=== PATIENT | female | born 1950 | race Caucasian/White ===

== ENCOUNTER 2018-09-21 08:50 | Observation (INO) | payer MEDICARE, OTHER ==
[~2018-09-21] VITALS: Ht 157.5 cm; Wt 69.1 kg
[~2018-09-21 08:50] MED LIST: AMARYL2 MG PO; ASPIRIN EC81 MG PO; CRESTOR10 MG PO; LANTUS100 UNITS/ SUB-Q; LEVAQUIN500 MG PO; LISINOPRIL20 MG PO; MECLIZINE HCL25 MG PO; METFORMIN HCL500 M1 PO; METFORMIN HCL500 MG PO; SIMVASTATIN20 MG PO; VENTOLIN HFA18 GM; VITAMIN D5000 UNIT PO
[2018-09-21] MEDS ORDERED: OXYCODON-ACETA1 EAC2 PO (14:04)
[2018-09-21] MEDS ORDERED: TYLENOL325 MG PO (14:04)
[2018-09-21] MEDS ORDERED: IBUPROFEN600 MG PO (14:04)
--- NOTE | 2018-09-21 14:06 | NUR ---
09/21/18 1406 Chelsea Avalos SN 1344- PT ARRIVES TO PACU. PT ON 6L VIA MASK. 02 SAT IN HIGH 90'S, RESPS EVEN AND UNLABORED. PT DROWSY AND UNABLE TO RESPOND TO QUESTIONS AT THIS TIME. ON ARRIVAL PT SBP 86. ALEKSEY, DOWNSTAIRS MAID NOTIFIED OF THIS. ORDERED TO COMPLETE BOLUS OF FLUID AND START ANOTHER LITER. 1351- CBG TAKEN BY JD MORGAN AT THIS TIME. BLOOD SUGAR IS 144. 1358- 02 REMOVED AT THIS TIME. PT ON RA WITH 02 SATS IN HIGH 90'S. TOLERATING WELL. PT DENIES PAIN, NAUSEA, AND DIZZINESS AT THIS TIME.
--- NOTE | 2018-09-21 15:27 | NUR ---
1435: PATIENT BACK IN DAY SURGERY ROOM. PATIENT DROWSY. AWAKENS TO VOICE. UNABLE TO RATE PAIN, BUT C/O PAIN. GRIMACING INTERMITTENTLY. VS CHECKED. LEFT BREAST DRESSING WITH SCANT AMOUNT OF DRAINAGE. SCDs ON ON. IV SITE WNL. DAUGHTER AT BEDSIDE. 1455: DR. ROSARIO NOTIFIED OF PATIENT'S BP. DAUGHTER AND PATIENT REQUESTED SOMETHING IV FOR PAIN. NEW ORDER RECEIVED FROM DR. ROSARIO. PATIENT MEDICATED FOR PAIN WITH IV MORPHINE. BP RECHECKED. 1540: ASSISTED PATIENT TO EAT JELLO AND DRINK SOME WATER. THEN MEDICATED FOR PAIN WITH 1 TAB OF PERCOCET. VS CHECKED. FAMILY AT BEDSIDE. BREAST HAIRSPRING SETTER IN TO SEE PATIENT AND DAUGHTER. CALL LIGHT WITHIN REACH.
--- NOTE | 2018-09-21 15:56 | OR ---
[facility] [address] [place], [place] [address] Signed DATE OF OPERATION: 09/21/2018 SURGEON: Duc Rosario MD PREOPERATIVE DIAGNOSIS: Left upper outer quadrant breast carcinoma (infiltrating ductal, ER/MA positive breast cancer). POSTOPERATIVE DIAGNOSIS: Left upper outer quadrant breast carcinoma (infiltrating ductal, ER/MA positive breast cancer). PROCEDURES PERFORMED: 1. Left breast injection of methylene blue dye for sentinel lymph node identification. 2. Left deep axillary sentinel lymph node biopsy. 3. Left wire localized partial mastectomy. ANESTHESIA: General LMA; Flores Jacquelin, EMBEDDED SOFTWARE DEVELOPMENT ENGINEER; and local 10 mL of 0.25% Marcaine with epinephrine. INDICATION: This 68-year-old woman underwent screening mammography where she was found to have an abnormality in the left upper outer quadrant of the breast. Additional imaging studies and biopsy by Dr. Mathieu Marie confirmed the infiltrating ductal breast carcinoma, considered ER/MA positive, HER-2/liliam is pending. Her Ki67 was 18% with no sign of lymphovascular invasion. She has no clinically palpable lesion and the axilla is clinically negative. Chest x-ray is negative as well. She does have comorbidities including diabetes type 2 as well as ongoing smoking of half pack of cigarettes a day. After a thorough review of her options for breast cancer management, she opts for a breast conservation approach to include lumpectomy (partial mastectomy), axillary sentinel lymph node biopsy, possible axillary dissection depending on frozen pathology. She understands as does her daughter the risks of bleeding, infection, recurrent disease and a plan already in place for radiation therapy postoperatively. Alternative of mastectomy has been reviewed with the patient and her daughter as well. It is notable that she does have mother who had breast cancer, but no other family members. Understanding all these she wished to proceed. FINDINGS: Good localization by the wire of the lesion in question was noted. The lesion was in the upper outer aspect of the left breast. Initial excision included the wire Electronically Signed By: DUC ROSARIO MD 09/21/18 1556 PATIENT NAME: CARMELO WHIPPLE OPERATIVE REPORT DATE OF : 48 REPORT #: [id number] PHYSICIAN: DUC ROSARIO MD PCP: JASVIR PERALTA REPORT IS CONFIDENTIAL AND NOT TO BE RELEASED WITHOUT AUTHORIZATION [facility] [address] [place], [place] [address] Signed surrounding soft tissue and palpable abnormality at the tip of the wire. Palpation of additional tissue in the distal margin was suspicious. Therefore, wide additional excision was undertaken as well. Specimen radiograph confirmed the initial lesion on the edge of the excised specimen, concordant to our clinical findings. I believe the margin to be widely negative at this point. As regard to the sentinel lymph node was easily identified with both radionuclide and methylene blue dye. Frozen pathology showed no sign of metastatic disease in the lymph node. There were no other lymph nodes. Of note, and only one sentinel lymph node was excised. DESCRIPTION OF PROCEDURE: The patient received from radiology suite, taken the operating room, and given a general anesthetic by LMA technique. Preoperative antibiotic Ancef was given. Sequential compression device stockings used and heparin subcutaneously administered. The wire emanated from the upper outer aspect of the left breast superiorly oriented. Review of her films including sentinel lymph node films as well as specimen. Her as well as the mammogram films confirmed the lesion and its position in relation to the wire and so on. 1.5 mL of methylene blue dye was injected in the subepithelial space in the upper outer aspect of the left areola. After sterile preparation and draping, a C-Trak gamma probe was applied to the left axilla showing strong uptake in the superior medial aspect. A small transverse incision was made there and dissection was carried through the subcutaneous tissue with electrocautery. Using blunt dissection in an avascular field, blue lymphatics were immediately identified and they were followed to the subpectoral area where a large blue node was noted. It was approximately 1-1/2 to 2 cm in size. It was clearly the index sentinel lymph node. This was dissected free and lymph node dissected free and passed for pathology. Additional interrogation of the axilla showed no strong uptake to radionuclide monitoring and no obvious blue lymph node elsewhere. The wound was then packed with gauze awaiting frozen pathology results. Attention was turned towards the breast area. The lesion was nonpalpable of course and hence the wire localization to allow for excision. A curvilinear incision was made over the area anticipated to be the site of the lesion in question. Dissection was carried through the dermis with electrocautery. A flap was elevated superiorly to allow for delivery of localizing wire. The parenchyma and wire were secured with an Allis clamp and wide resection undertaken. The deep lateral aspect of the tip of the wire could be palpated and excision undertaken. The explanted breast tissue with wire allowed for palpation confirming a high probability of lesion in question. This was sent for specimen radiograph. Additional palpation in the area of excision, however, did demonstrate additional firm tissue and very likely this would have been a positive margin. On that basis, wide excision was additionally undertaken in the deep and Electronically Signed By: DUC ROSARIO MD 09/21/18 1556 PATIENT NAME: CARMELO WHIPPLE OPERATIVE REPORT DATE OF : 48 REPORT #: [id number] PHYSICIAN: DUC ROSARIO MD PCP: JASVIR PERALTA REPORT IS CONFIDENTIAL AND NOT TO BE RELEASED WITHOUT AUTHORIZATION [facility] [address] [facility] [place] [address] Signed lateral aspects widely excised breast tissue to include the abnormally palpable tissue. Additional examination showed no suspicious lesion whatsoever. Irrigation was undertaken with sterile water. The parenchyma was reapproximated with interrupted 2-0 Vicryl. Specimen radiograph confirmed that the lesion was consider (on the edge of the excision) as was concordant to the clinical findings. I did not send the additional excised tissue for specimen radiograph. By this point, the frozen pathology of the sentinel lymph node showed no evidence of metastatic disease. Both wounds were copiously irrigated with sterile water for its tumor lytic effect and deep soft tissue reapproximated with interrupted 2-0 Vicryl and running subcuticular 3-0 Vicryl for the skin. Steri-Strips were applied as was a Mepilex silver sponge dressing and an OpSite. The patient was ultimately extubated and transferred to recovery in good condition having suffered no complications. Sponge, needle, and counts reported as correct x3. MD DAVID Escoto/MODL /[id number] cc: Mathieu Marie MD [facility] Copies: MATHIEU MARIE MD ~ Electronically Signed By: DUC ROSARIO MD 09/21/18 1556 PATIENT NAME: CARMELO WHIPPLE OPERATIVE REPORT DATE OF : 48 REPORT #: [id number] PHYSICIAN: DUC ROSARIO MD PCP: JASVIR PERALTA REPORT IS CONFIDENTIAL AND NOT TO BE RELEASED WITHOUT AUTHORIZATION
--- NOTE | 2018-09-21 16:32 | EKG ---
[facility] [address] [facility] [place] [address] Signed Normal sinus rhythm Left ventricular hypertrophy with repolarization abnormality Prolonged QT Abnormal ECG When compared with ECG of 18-SEP-2018 12:00, T wave inversion no longer evident in Inferior leads Confirmed by RODDY CISNEROS DO ([id number]) on 09/21/2018 4:32:09 PM Electronically Signed By: RODDY CISNEROS DO 09/21/18 1632 PATIENT NAME: CARMELO WHIPPLE Electrocardiogram DATE OF : 48 PHYSICIAN: RODDY CISNEROS DO REPORT #: [id number] REPORT IS CONFIDENTIAL AND NOT TO BE RELEASED WITHOUT AUTHORIZATION
--- NOTE | 2018-09-21 16:42 | NUR ---
PT RESTING IN BED WITH EYES CLOSED. PT RESPONDS TO VERBAL COMMAND AND ANSWERS QUESTIONS APPROPRIATELY. PT DENIES NAUSEA AND RATES PAIN 4/10 COMFORTABLE. PT FAMILY AT BEDSIDE, CALL LIGHT WITHIN REACH.
--- NOTE | 2018-09-21 17:06 | NUR ---
ASSISTED TO BR VOIDS 150 MLS. FEELS LIGHT HEADED AND THEN BECAME NAUSEATED VOMITED APPRO 100MLS RED LIQUID. HAD RED JELLO AND WATER 200MLS. RETURNED TO BED.
--- NOTE | 2018-09-21 17:31 | NUR ---
CONTS TO FEEL LIGHT HEADED. DENIES NAUSEA. DR ROSARIO CALLED WITH UPDATE ON LIGHT HEADEDINESS NAUSEA. TO OBS PT LONGER AND CALL HIM WITH UPDATE THIS EVENING.
--- NOTE | 2018-09-21 17:53 | NUR ---
1745 TRANSFERRED TO 117 REPORT GIVEN ULICES MILES.
--- NOTE | 2018-09-21 18:01 | NUR ---
1745: PT TO ROOM 117, REPORT RECEIVED FROM ADAM MILES. PT STATES HER PAIN IS WELL CONTROLLED AT A 2/10. SHE STATES SHE CONTINUES TO FEEL A LITTLE BIT DIZZY. PT INSTRUCTED TO NOT GET UP WITHOUT HELP AND SHE WAS ORIENTED TO THE ROOM AND THE USE OF THE CALL MANCIA. LEFT BREAST SURGICAL DRESSING REMAINS INTACT WITH A SCANT AMOUNT OF NOTED SHADOWING. SCD'S ON AND RUNNING AT THIS TIME. 20 GAUGE RIGHT AC IV CDI WITH LR RUNNING AT 85 ML/ HOUR.
--- NOTE | 2018-09-21 18:12 | NUR ---
REPORT RECEIVED FROM JD ELENA. THIS RN ASSUMING CARE OF PT. PT REPORTS 2/10 PAIN AND DENIES NAUSEA AT THIS TIME. DRESSING SHOWS ERASER SIZED RED SPOT NEAR AXILLA, OTHERWISE, C/D/I. WARM BLANKET PROVIDED. PT WATCHING TV. NO ADDITIONAL REQUESTS OR COMPLAITNS AT THIS TIME.
--- NOTE | 2018-09-21 18:52 | NUR ---
THIS RN TO BEDSIDE TO CHECK ON PT. PT DENIES PAIN AND NAUSEA AT THIS TIME. PT WATCHING TV WITH DAUGHTER. PT TOLREATING SIPS OF WATER. NO ADDTIONAL REQUESTS OR COMPLAINTS AT THIS TIME. CALL LIGHT WITHIN REACH.
--- NOTE | 2018-09-21 19:20 | NUR ---
SHIFT REPORT RECEIVED FROM GAVINOILGREGOR RANKIN AT BEDSIDE.PT RESTING IN BED, RR WNL. MEPILEX IN PLACE, SCANT DRAINAGE NOTED AT AXILLARY, WILL MONITOR. PT DENIES NAUSEA, SUGAR FREE JELLO GIVEN. PT REPORTS MINIMAL PAIN WITH MOVEMENT, DENIES NEED FOR PAIN MEDICATION. FAMILY AT BEDSIDE. CALL LIGHT IN REACH.
--- NOTE | 2018-09-21 20:30 | NUR ---
PT RESTING IN BED, EYES CLOSED. PT EASILY AWAKENS, DENIES PAIN. ASSESSMENT COMPLETE. NO NAUSEA AT THIS TIME. BOWEL TONES ACTIVE. MEPLIEX DRESSING INTACT, VERY SMALL SCANT DRAINAGE NOTED TO AXILLARY. PT DENIES ADDITIONAL NEEDS, CALL LIGHT IN REACH.
--- NOTE | 2018-09-21 21:04 | NUR ---
ASSISTED PT TO THE RESTROOM 2PA WITH JD AVALOS BECAUSE PT REPORTED FEELING "A LITTLE DIZZY". PT IS BACK IN BED AT THIS TIME. BAILEY IS IN ROOM WITH PT.
--- NOTE | 2018-09-21 21:15 | NUR ---
DR ROSARIO PROVIDED WITH PT UPDATE. PT A/OX4, RATES PAIN 0-2. DENIES NAUSEA, TOLERATING SUGAR FREE JELLO. BOWEL TONES ACTIVE. RECENT OUTPUT OF 150MLS. PT 1-2PA, REPORTED MILD DIZZINESS/WEAKNESS. VS BEFORE AND AFTER AMBULATION STABLE. DR ROSARIO AWARE OF ALL FINDINGS, PT WILL BE INPATIENT FOR EVENING AND WILL BE EVALUATED INN THE MORNING BY DR ROSARIO. AWAITING NEW ORDERS FOR PT.
--- NOTE | 2018-09-21 23:00 | NUR ---
CLARIFIED NEW ORDERS WITH DR ROSARIO AT NURSE'S STATION. DR ROSARIO NOTIFIED THAT PT TAKES SCHEDULED LANTUS IN THE EVENING AND IN THE EMAR LANTUS IS SCHEDULED FOR THE MORNING. PER DR ROSARIO, "YOU CAN GIVE HER THE LANTUS TONIGHT IF THAT'S WHEN SHE TAKES IT AT HOME". THIS RN VERIFIED WITH PT AND PT'S DAUGHTER THAT PT TAKES LANTUS AT NIGHT AND WAS LAST GIVEN ON 09/20/18 AT ROUGHLY [id number]. VERBAL ORDER VERIFIED BY DR ROSARIO TO CHANGE LANTUS TIME FOR EVENING STARTING NOW AND TO "HOLD 2AM REGULAR INSULIN AND LET THE LANTUS TAKE ITS COURSE". NO FURTHER ORDERS.
--- NOTE | 2018-09-22 01:06 | NUR ---
PT RESTING IN BED, RR WNL. IV FLUIDS INFUSING PER MD ORDERS, SITE WNL. EYES CLOSED, NO DISTRESS NOTED. CALL LIGHT IN REACH, PT'S DAUGHTER IN ROOM RESTING ON COUCH.
--- NOTE | 2018-09-22 02:00 | NUR ---
PER DR ROSARIO (SEE PREVIOUS NOTE) OKAY TO SKIP 0200 INSULIN SS. LAST BS BEFORE LANTUS ADMINISTRATION WAS 243. BUSINESS UNIT DIRECTOR AWARE OF CONVERSATION BETWEEN THIS RN AND DR ROSARIO AND AGREES WITH PLAN TO HOLD 0200 INSULIN SS ORDERS. WILL MONITOR FOR SIGNS OF HYPER/HYPOGLYCEMIA.
--- NOTE | 2018-09-22 02:11 | NUR ---
HELPED PT TO THE BATHROOM AND BACK TO BED. VITALS DONE AND CHARTED. BEDSIDE TABLE AND CALL LIGHT IN REACH.
--- NOTE | 2018-09-22 02:15 | NUR ---
ASSESSMENT COMPLETE. NO NEW CONCERNS. VSS. PT A/O, REPOSRTS MINIMAL INTERMITTENT PAIN WITH MOVEMENT, DENIES NEED FOR PHARMACOLOGICAL INTERVENTION. PT DENIES NAUSEA. IV FLUIDS INFUSING PER MD ORDERS, SITE WNL. PT RECENTLY UP 1PA FROM RESTROOM TO VOID. PT NOW RESTING IN BED, SCD'S IN PLACE. MEPILEX IN PLACE AND INTACT, NO NEW DRAINAGE NOTED FROM PREVIOUS ASSESSMENT. NO ADDITIONAL NEEDS, CALL LIGHT IN REACH.
--- NOTE | 2018-09-22 06:49 | NUR ---
PT HAD UNEVENTFUL NIGHT, SLEPT FOR MOST OF THE SHIFT. PT BECAME INPATIENT AFTER GIVEN DR ROSARIO UPDATE. NO NAUSEA THIS SHIFT, PT ON ADA DIET. SCHEDULED BS CHECKS WITH INSULIN SS AND SCHEDULED LANTUS. PT SBA WITH AMBULATION. IV FLUIDS INFUSING, SITE WNL. PT USES CALL LIGHT APPROPERIATELY.
--- NOTE | 2018-09-22 07:44 | NUR ---
0725: Pt resting in her bed with no complaints of nausea, dizziness, or pain. Pt alert and oriented and is ordering breakfast at this time. Call light is within reach.
--- NOTE | 2018-09-22 08:16 | NUR ---
PT UP TO HER CHAIR AND IS EATING AND SHE DENIES ANY PAIN OR OTHER PROBLEMS AT THIS TIME.
--- NOTE | 2018-09-22 10:11 | NUR ---
Pt sitting up in her chair with no complaints and is exercising her legs at this time.
--- NOTE | 2018-09-22 11:19 | NUR ---
PT GETTING READY FOR A SHOWER AT THIS TIME. THE CROWN ATTACHER IS IN THE ROOM ASSISTING THE PT AT THIS TIME. PT DENIES ANY PAIN OR OTHER PROBLEMS.
--- NOTE | 2018-09-22 13:01 | NUR ---
PATIENT IS SITTING UP IN CHAIR.
--- NOTE | 2018-09-22 13:16 | NUR ---
DID PATIENT'S BLOOD SUGAR CHECK FOR BREAKFAST AND LUNCH. GETTING HER SOME ICE WATER. SHE IS SITTING UP IN HER CHAIR DOING ARM AND LEG EXERCISES. WHILE WATCHING TV.
--- NOTE | 2018-09-22 14:39 | NUR ---
PATIENT SITTING UP IN CHAIR. RN IN ROOM. FINAL VITAL SIGNS WERE OBTAINED PRIOR TO DISCHARGE FROM THE UNIT
--- NOTE | 2018-09-22 14:40 | NUR ---
DC INSTUCTIONS GIVEN WITH GOOD UNDERSTANDING STATED. PT GETTING DRESSED FOR DC AT THIS TIME. IV DC'D, TIP INTACT.
== END 2018-09-22 15:00 | disposition home or self-care (01) ==
LOC: OPS 08:50 → MS 08:50 → DS 08:50 → EDSTATUS 10:00 → US 10:00 → OPS 10:00 → MS 17:45 → OPS 21:48 → MS 21:49
PROVIDERS: ADMIT Surgery
PROC: 0HBU0ZZ Excision of Left Breast, Open Approach (ICD-10-PCS; principal; 2018-09-21 11:30)
PROC: 07B60ZX Excision of Left Axillary Lymphatic, Open Approach, Diagnostic (ICD-10-PCS; 2018-09-21 11:30)
DX: C50.412 Malignant neoplasm of upper-outer quadrant of left female breast (principal); Z17.0 Estrogen receptor positive status [ER+]; E11.9 Type 2 diabetes mellitus without complications; F17.210 Nicotine dependence, cigarettes, uncomplicated; I95.9 Hypotension, unspecified; R42 Dizziness and giddiness; Z80.3 Family history of malignant neoplasm of breast; Z79.4 Long term (current) use of insulin; Z78.0 Asymptomatic menopausal state
CPT/HCPCS: 00404; 76098; 76942; 77065; 78195; 88305; 88307; 88341; 88342; 88360; 93005; 93010; A9541; G0378; J0131; J0690; J1100; J1644; J1885; J2250; J2270; J2405; J2704; J7120; Q9968

== ENCOUNTER 2019-10-31 15:39 | Emergency (ER) | payer MEDICARE, OTHER ==
[~2019-10-31] VITALS: Ht 157.5 cm; Wt 70.3 kg
[~2019-10-31 15:39] MED LIST changes: +ANASTROZOLE1 MG PO; +CALCIUM 600 +1 EAC9 PO; +FEROSUL325 MG PO; +IBUPROFEN600 MG PO; +OXYCODON-ACETA1 EAC2 PO; +TYLENOL325 MG PO; +VITAMIN C500 M5 PO
--- NOTE | 2019-11-01 13:12 | EKG ---
[facility] [address] [facility] [place] [address] \T\ T wave abnormality, consider lateral ischemia Abnormal ECG When compared with ECG of 21-SEP-2018 09:51, ST more depressed in Anterior leads T wave inversion no longer evident in Anterior leads Confirmed by YONY SAMPSON MD ([id number]) on 11/01/2019 1:12:06 PM Electronically Signed By: YONY SAMPSON MD 11/01/19 1312 PATIENT NAME: CARMELO WHIPPLE Electrocardiogram DATE OF : 48 PHYSICIAN: YONY SAMPSON MD REPORT #: [id number] REPORT IS CONFIDENTIAL AND NOT TO BE RELEASED WITHOUT AUTHORIZATION
== END 2019-10-31 17:17 | disposition short-term general hospital (02) ==
LOC: ED 15:39
DX: K92.2 Gastrointestinal hemorrhage, unspecified (principal); R57.8 Other shock; E11.9 Type 2 diabetes mellitus without complications; F17.200 Nicotine dependence, unspecified, uncomplicated; Z79.4 Long term (current) use of insulin; Z79.82 Long term (current) use of aspirin; Z79.899 Other long term (current) drug therapy
CPT/HCPCS: 71260; 74177; 80053; 81001; 83690; 83880; 84484; 85025; 85730; 86850; 86900; 86901; 86920; 86927; 93005; 93010; 96361; 99291; C9113; J2354; J2405; J7030; J7050; P9016; Q9967

== ENCOUNTER 2021-09-23 15:22 | Inpatient (IN) | payer MEDICARE, OTHER ==
[~2021-09-23] VITALS: Ht 157.5 cm; Wt 79.7 kg
--- NOTE | 2021-09-23 01:26 | NUR ---
PT ARRIVED TO THE CCU AT 2320 DROWSY BUT AWOKE EASILY TO VOICE. PT LR BOLUS INFUSING ORDERED. PT MOVED OVER TO THE CCU BED WITH ASSISTANCE FROM JD CHING AND RESEARCH TECHNICIAN ANJELICA. VITALS THEN TAKEN, ADMISSION COMPLETED. JD CHING ADMINISTERED SCHEDULED MEDICATIONS (SEE MAR). PT THEN ASSESSED PT NOTED TO BE SLOW TO RESPOND, PT HARD OF HEARING AND DOES NOT HAVE HER HEARING AIDS. PT FORGETFUL AND DROWSY BUT IS ORIENTED X 4. HEART RYTHM TACHYCARDIC BUT REGULAR, LUNGS CLEAR IN UPPER LOBES, DIMINISHED IN THE BASES BILATERALLY WITH FINE CRACKLES IN THE LEFT LOWER LOBE. BOWEL TONES HYPOACTIVE, TENDER UPON PALPATION, PT GUARDING ABDOMEN WHEN PALPATING. RADIAL AND PEDAL PULSES STRONG, PT DENIES HAVING ANY NUMBNESS OR TINGLING WHEN ASKED. AFTER ASSESSMENT PT STATED SHE NEEDED TO VOID. PT ASSISSTED UP AND WAS ABLE TO PIVOT TO THE BEDSIDE COMMODE, VOIDED 600ML. SAMPLE COLLECTED AND SENT TO THE LAB. WHILE ON THE COMMODE PT BECAME NAUSEAUS, PRN ZOFRAN ADMINISTERED BY JD CHING. PT ABLE TO GET BACK INTO BED WITH ASSISTANCE. PT NOW LAYING IN BED SLEEPING AND REPORTS NO FURTHER NEEDS WHEN ASKED. CALL LIGHT IN REACH, BED IN LOWEST POSITION, IVF INFUSING ORDERED, WILL CONTINUE PLAN OF CARE.
[~2021-09-23 15:22] MED LIST changes: -CALCIUM 600 +1 EAC9 PO; +CALCIUM 600 MG1 EAC7 PO
--- NOTE | 2021-09-23 18:25 | EKG ---
[facility] [address] [facility] [place], [place] [address] Signed Sinus tachycardia Left ventricular hypertrophy with repolarization abnormality ( Sokolow-Lozano ) Abnormal ECG When compared with ECG of 23-SEP-2021 17:08, (Unconfirmed) No significant change was found Confirmed by YONY SAMPSON MD ([id number]) on 09/23/2021 6:25:29 PM Electronically Signed By: YONY SAMPSON MD 09/23/21 1825 PATIENT NAME: CARMELO WHIPPLE Electrocardiogram DATE OF : 48 PHYSICIAN: YONY SAMPSON MD REPORT #: [id number] REPORT IS CONFIDENTIAL AND NOT TO BE RELEASED WITHOUT AUTHORIZATION
--- NOTE | 2021-09-23 18:25 | EKG ---
[facility] [address] [facility] [place] [address] Signed Sinus tachycardia Left ventricular hypertrophy with repolarization abnormality ( Sokolow-Lozano ) Abnormal ECG When compared with ECG of 31-OCT-2019 16:29, T wave inversion now evident in Inferior leads Confirmed by YONY SAMPSON MD ([id number]) on 09/23/2021 6:25:25 PM Electronically Signed By: YONY SAMPSON MD 09/23/21 1825 PATIENT NAME: CARMELO WHIPPLE Electrocardiogram DATE OF : 48 PHYSICIAN: YONY SAMPSON MD REPORT #: [id number] REPORT IS CONFIDENTIAL AND NOT TO BE RELEASED WITHOUT AUTHORIZATION
--- NOTE | 2021-09-24 00:05 | NUR ---
assisted patient in taking her scheduled medications by mouth she did well, patient appears to be very thirsty, drank almost a whole cup of water. took her emulose 15 ml well. wants to go back to sleep.
--- NOTE | 2021-09-24 02:55 | NUR ---
PT LAYING IN BED SLEEPING AT THIS TIME IN NO APPARENT DISTRESS. IVF INFUSING AT ORDERED RATE. RESPIRATIONS EVEN AND UNLABORED, PT IN NO APPARENT DISTRESS AND WAS LEFT UNDISTURBED. CALL LIGHT IN REACH, BED IN LOWEST POSITION, WILL CONTINUE PLAN OF CARE.
--- NOTE | 2021-09-24 04:50 | NUR ---
PT LAYING IN BED SLEEPING AT THIS TIME. IVF INFUSING ORDERED. VITALS TAKEN, PT AWOKE EASILY AT THIS TIME AND WAS ORIENTED. PT ASSESSED AT THIS TIME (SEE CHART). PT ABDOMEN PAINFUL AND RATED A 9/10. ABOMINAL TONES HYPOACTIVE/RARE THROUGHOUT, TENDER TO TOUCH, AND GUARDED WHEN PALPATED. PT DENIES SHORTNESS OF BREATH WHEN ASKED. PRN OXYCODONE ADMINSITERED FOR PAIN (SEE MAR). PT PROVIDED WITH ICE WATER AT THIS TIME. PT REPORTS NO FURTHER NEEDS WHEN ASKED AND RETURNED BACK TO SLEEP. CALL LIGHT IN REACH, BED IN LOWEST POSITION, WILL CONTINUE PLAN OF CARE.
--- NOTE | 2021-09-24 07:45 | NUR ---
PATIENT SHIFT REPORT RECIEVED FROM CHIP APPLYING MACHINE TENDER RN. PATIENT RESTING IN BED AT THIS TIME. PER REPORT PATIENT IS PAINFUL ALL OVER. PATIENT HAS ALSO BEEN TACHYCARDIC IN THE LOW 100'S. PATIENT IS GETTING UP AND USING BEDSIDE CAMMODE. NO OTHER NEEDS AT THIS TIME. WILL CONTINUE TO CLOSELY MONITOR.
--- NOTE | 2021-09-24 09:00 | NUR ---
PATIENTS ASSESMENT COMPLETED. PATIENTS BREATH SOUNDS CLEAR, RR RATE EVEN AND UNLABORED. BOWEL TONES ACTIVE, PATIENT IS VERY TENDER TO PALPATION, MILD ABD DISTENTION, NO N/V. PATIENT WAS ABLE TO EAT APPROX 50% OF HER CLEAR LIQUID TRAY. PULSESS GOOD AND STRONG. PATIENT IS GERNALLY WEAK AND ACHY ALL OVER. PT IS ALERT AND ORIENTED, BUT A LITTLE HARD OF HEARING. MEDICATIONS GIVEN AND PATIENT TOOK WITH NO ISSUES. AM CARES PROVIDED. CALL LIGHT IN REACH. WILL CONTINUE TO CLOSELY MONITOR.
--- NOTE | 2021-09-24 10:00 | NUR ---
Spoke with pt, her sister, and friends. Pt consent to questions with people in room. Pt lives with her daughter, Brenda, she is at work today. Pt does not use any DME and has 0 issues acessing her home. Daughter does all the shopping, cooking, and cleaning. Pt can drive. Pt plans on dc to home when cleared medically.
--- NOTE | 2021-09-24 10:36 | NUR ---
STUDENT NURSE BARRINGTON IN TO GIVE PATIENT A BEDBATH WITH JD MIRAMONTES. SKIN IS INTACT. PATIENT UP TO CAMMODE WITH STAND-BY ASSIST. PATIENT TOLERATED WELL. WILL CONTINUE TO CLOSELY MONITOR.
--- NOTE | 2021-09-24 11:49 | NUR ---
MD IN TO SEE PATIENT. PATIENT IS MORE DISTENDED THIS AM PER MD. PATIENT REMAINS VERY TENDER TO PALPATION. WILL REPEAT CT SCAN WITH CONTRAST. NO OTHER NEEDS AT THIS TIME. WILL CONTINUE TO CLOSELY MONITOR.
[2021-09-24] MEDS ORDERED: PREDNISONE10 MG PO (12:18)
[2021-09-24] MEDS ORDERED: INVOKANA100 MG PO (12:19)
[2021-09-24] MEDS ORDERED: AZATHIOPRINE50 MG PO (12:20)
[2021-09-24] MEDS ORDERED: KLOR-CON M2020 MEQ PO (12:22)
[2021-09-24] MEDS ORDERED: PROTONIX40 MG PO (12:23)
[2021-09-24] MEDS ORDERED: OCEAN104 ML NAS (13:16)
--- NOTE | 2021-09-24 13:18 | NUR ---
MED REC COMPLETE
--- NOTE | 2021-09-24 14:00 | NUR ---
PATIENT RESTING IN BED WITH HER FAMILY AT THE BEDSIDE. PATIENT COMPLAINING OF PAIN. PER PATIENT THE PAIN MEDICATION GIVEN PRIOR ISNT HELPING HER PAIN. UPDATED FLOYD RN AND FLOYD WILL BE IN TO GIVE PRN MORPHINE. PATIENT AGREEABLE TO PLAN OF CARE. WILL CONTINUE TO CLOSELY MONITOR.
--- NOTE | 2021-09-24 14:26 | NUR ---
MEDICATIONS ADMINISTERED INCLUDING 2 MG IV MORPHINE FOR PAIN (SEE EMAR). FAMIILY AT BEDSIDE. ANSWERED QUESTIONS ABOUT PLAN OF CARE. CALL LIGHT WITHIN REACH. WILL CONTINUE TO MONITOR.
--- NOTE | 2021-09-24 15:30 | NUR ---
THIS RN AND PATIENT DOWN FOR CT SCAN.
--- NOTE | 2021-09-24 16:00 | NUR ---
PATIENT TOLERATED CT SCAN WELL. PATIENTS DAUGHTER AT THE BEDSIDE. REVIEWED PLAN OF CARE WITH PATIENT AND HER DAUGHTER. PATIENTS ASSESSMENT ALSO COMPLETED AT THIS ITME. PATIENTS ABD CONTINUES TO BE DISTENDED AND TENDER. PATIENTS BOWEL TONES ARE HYPOACTIVE. WILL CONTINUE TO CLOSELY MONITOR PATIENT.
--- NOTE | 2021-09-24 18:31 | NUR ---
SAMPSON IN TO DISCUSS CT RESULTS WITH PATIENT AND HER DAUGHTER. PLAN OF CARE REVIEWED WITH BOTH OF THEM. ALL QUESTIONS ANSWERED. PER MD WILL START PATIENT ON A HEPARIN GTT. PATIENT THEN UP TO BEDSIDE CAMMODE WITH STAND-BY ASSIST AND TOELRATED WELL. PATIENT RATING ABD PAIN 9/10. PRN OXYCODONE ADMINISTERED. NO OTHER NEEDS AT THIS TIME. PATIENTS SIST AT THE BEDSIDE AND HER DAUGHTER STEPPED OUT TO GRAB SOME BELONGINGS TO STAY WITH THE PATIENT TONIGHT. CALL LIGHT IN REACH. WILL CONTINUE TO CLOSELY MONITOR.
--- NOTE | 2021-09-24 19:00 | NUR ---
MD ROSARIO IN THE UNIT. PER MD GIVE A 5000UNIT HEPARIN BOLUS AND START HEPARIN GTT. UPDATED MD SAMPSON. IS AGREEABLE WITH PLAN OF CARE. AWAITED PHARMACY TO VERIFY MEDS. STARTED GTT PER ORDERS WITH HIPOLIOT MILES. WILL CONTINUE TO CLOSELY MONITOR.
--- NOTE | 2021-09-24 19:40 | NUR ---
PT LAYING IN ROOM AT THIS TIME AWAKE AND ALERT, DAUGHTER AT THE BEDSIDE, IVF INFUSING ORDERED. HEAD OF DRAMA FINISHED DRAWING PT'S LABS AT THIS TIME, BLOOD BAND VERIFIED WITH HEAD OF DRAMA. HEPARIN BOLUS OF 5000 UNITS AND HEPARIN DRIP CALCULATED AT A RATE OF 1100 UNITS/HR DOUBLE VERIFIED WITH JD RUIZ. MEDICATIONS THEN ADMINISTERED (SEE MAR). HEPARIN DRIP NOW INFUSING AT 1100 UNITS/HR. PT REPORTS NO NEEDS AT THIS TIME WHEN ASKED AND IS RESTING IN BED WITH HER DAUGHTER AT THE BEDSIDE. CALL LIGHT IN REACH, BED IN LOWEST POSITION, WILL CONTINUE PLAN OF CARE.
--- NOTE | 2021-09-24 21:20 | NUR ---
PT LAYING IN BED AWAKE AT THIS TIME, PT ORIENTED X4, IVF INFUSING, IV HEPARIN INFUSING AT PREVIOUS RATE (SEE MAR). PT VITALS TAKEN AT THIS TIME (SEE CHART). PT ASSESSMENT THEN COMPLETED. HEART RATE REGULAR, LUNGS CLEAR IN UPPER LOBES AND CLEAR/DIMINISHED IN THE BASES. ABDOMEN DISTENDED, PAINFUL WHEN PALPATED, AND GUARDED UPON PALPATION. PT REPORTS 9/10 ABDOMINAL PAIN WHEN ASKED. CMS INTACT, RADIAL AND PEDAL PULSES STRONG, PT DENIES N&T TO EXTREMITIES. SCHEDULED MEDICATIONS ADMINISTERED AT THIS TIME ALONG WITH PRN MORPHINE 2MG FOR ABDOMINAL PAIN (SEE MAR). SLIDING SCALE INSULIN HELD CBG WAS 127. PT NOW RESTING IN BED AND REPORTS NO FURTHER NEEDS WHEN ASKED. CALL LIGHT IN REACH, BED IN LOWEST POSITION, PT'S DAUGHTER AT THE BEDSIDE, WILL CONTINUE PLAN OF CARE.
--- NOTE | 2021-09-24 23:05 | NUR ---
PT LAYING IN BED SLEEPING AT THIS TIME HEPARIN AND IVF INFUSING AT PREVIOUS RATES. SCHEDULED IV ABX STARTED AND INFUSING AT ORDERED RATE (SEE MAR). PT AWOKE DURING THIS TIME. PT ASKED IF SHE WAS HAVING PAIN, PT STATED YES AND THAT SHE WAS HAVING ABDOMINAL PAIN 8/10. 2MG PRN MORPHINE THEN ADMINISTERED (SEE MAR). PT REPORTED NO FURTHER NEEDS AT THIS TIME AND RETURNED TO SLEEP. PT RESTING IN BED, PT'S DAUGHTER IN ROOM SLEEPING IN THE RECLINER, CALL LIGHT IN REACH, BED IN LOWEST POSITION, WILL CONTINUE PLAN OF CARE.
--- NOTE | 2021-09-25 01:30 | NUR ---
PT LAYING IN BED SLEEPING AT THIS TIME. IVF AND IV HEPARIN INFUSING AT PREVIOUS RATES. VITALS TAKEN AT THIS TIME, PT AWOKE DURING THIS TIME. PT THEN ASSESSED. PT SLIGHTLY DROWSY BUT ORIENTED X3 AND FOLLOWS DIRECTIONS. PT IV SITES C/D/I AND FLUSHING WELL. LUNGS CLEAR IN UPPER LOBES AND DIMINISHED/CLEAR IN THE BASES BILATERALLY. BOWEL TONES ACTIVE, PAINFUL WHEN PALPATED, MILDLY DISTENDED, AND GUARDED WHEN PALPATED. PULSES STRONG, PT DENIES NUMBNESS OR TINGLING TO EXTREMITIES. PT ASKED IF SHE NEEDED TO VOID AT THIS TIME, PT STATED YES. PT ASSISTED UP AND WAS ABLE TO PIVOT TO THE BEDSIDE COMMODE WITH SOME SUPPORT. PT VOIDED 350ML OF CONCENTRATED URINE AND WAS ASSISTED BACK INTO THE BED. PT REPORTS NO FURTHER NEEDS AND IS NOW RESTING IN BED. [employer] SALES REPRESENTATIVE NOW IN ROOM TO DRAW SCHEDULED LABS, WILL CONTINUE PLAN OF CARE.
--- NOTE | 2021-09-25 03:05 | NUR ---
PT'S APTT VALUE OBTAINED AND WAS 111. PT HEPARIN DRIP STOPPED PER DRIP ORDERS. DRIP RATE TO BE CONTINUED 30 MINUTES AFTER STOP TIME AT A NEW RATE OF 1000 UNITS/HR PER TITRATION ORDERS. PT LAYING IN BED SLEEPING AT THIS TIME AND AWOKE EASILY . PT REPORTED HAVING SOME ABDOMINAL PAIN 9/10 AND REQUESTED PRN PAIN MEDICATION WHEN ASKED. 2MG PRN MORPHINE ADMINISTERED (SEE MAR). PT REPORTS NO FURTHER NEEDS AND IS NOW SLEEPING. MAINTENANCE IVF INFUSING ORDERED. CALL LIGHT IN REACH, BED IN LOWEST POSITION, WILL CONTINUE PLAN OF CARE.
--- NOTE | 2021-09-25 03:25 | NUR ---
PT LAYING IN BED SLEEPING AT THIS TIME IN NO APPARENT DISTRESS. IVF INFUSING ORDERED. HEPARIN DRIP RATE VERIFIED WITH SECOND RN, RATE STARTED AT 1000 UNITS PER TITRATION ORDERS AFTER 30 MINUTE PAUSE. PT IN NO APPARENT DISTRESS AND REMAINS ASLEEP. RESPIRATIONS EVEN AND UNLABORED. CALL LIGHT IN REACH, WILL CONTINUE PLAN OF CARE.
--- NOTE | 2021-09-25 06:25 | NUR ---
PT LAYING IN BED ALERT AND ORIENTED IVF AND HEPARIN DRIP INFUSING AT PREVIOUS RATES. SCHEDULED IV ABX STARTED AND INFUSING ORDERED. VITALS THEN TAKEN AND PATIENT ASSESSED. HEART RATE REGULAR, MURMUR STILL PRESENT, LUNGS CLEAR IN UPPER LOBES AND DIMINISHED IN THE BASES BILATERALLY. BOWEL TONES HYPOACTIVE, ABDOMEN DISTENDED, PT REPORTS PAIN WHEN PALPATING, GUARDING PRESENT WHEN PALPATING ABDOMEN. PT STATED SHE NEEDED TO VOID, PT ABLE TO STAND UP AND PIVOT WITH SUPPORT FROM THIS RN. 250ML OF CONCENTRATED URINE VOIDED, PT THEN ASSITED BACK INTO BED. PT THEN REPORTED NAUSEA AND 9/10 ABDOMINAL PAIN, PRN ZOFRAN AND 2MG PRN MORPHINE ADMINISTERED. PT NOW RESTING IN BED AND REPORTS NO NEEDS, CALL LIGHT IN REACH, BED IN LOWEST POSITION, PT'S DAUGHTER AT THE BEDSIDE, WILL CONTINUE PLAN OF CARE.
--- NOTE | 2021-09-25 07:30 | NUR ---
PATIENT SHIFT REPORT RECIEVED FROM WORK[employer]ENS[employer] LEGAL SECRETARY RN. PATIENT RESTING IN BED. PATIENTS DAUGHTER AT THE BEDSIDE. WILL CONTINUE TO CLSOELY MONITOR.
--- NOTE | 2021-09-25 08:30 | NUR ---
PATIENTS APTT IS 71.1. PER ORDER PROTOCOL WILL KEEP HEPARIN GTT AT THE SAME GTT RATE. VERIFIED WITH DREW MILES.
--- NOTE | 2021-09-25 09:30 | NUR ---
PATIENT SHIFT ASSESSMENT COMPLETED. PATIENTS BREATH SOUNDS CLEAR AND DIMINISHED. RR- 12. UNLABORED. OCCASIONAL COUGH NOTED. PATIENT IS ON RA WITH SPO2 94%. BOWEL TONES HYPOACTIVE. NO BM TODAY. PATIENTS ABD IS TENDER AND DISTENDED. PATIENT IS AO X4. RISSAETN REPORTS SHE IS HAVING HALLUCINATIONS. STUDENT NURSE AT THE BEDSIDE TO ASSIST PATIENT WITH AM CARE. NO OTHER NEEDS AT THIS TIME. WILL CONTINUE TO CLOSELY MONITOR.
--- NOTE | 2021-09-25 10:00 | NUR ---
MD SAMPSON IN TO SEE PATIENT. REVIEWED ASSESSMENT FINDINGS WITH MD AND UPDATED ABOUT PATIENT REPORTING HALLUCINATIONS. REVIEWED HEPARIN GTT PROTOCOL WITH MD SAMPSON. PER WRITTEN PROTOCOL WILL DO 1 MORE PTT AT 1330. PER WRITTEN PROTOCOL MUST HAVE 2 CONSECUTIVE PTTS WITHIN NORMAL RANGE TO DO NEXT DRAW IN THE AM. PATIETNS DAUGHTER AT THE BEDSIDE. REVIEWED PLAN OF CARE WITH BOTH. NO FURTHER QUESTIONS AT THIS TIME. WILL CONTINUE TO CLOSELY MONITOR.
--- NOTE | 2021-09-25 10:22 | NUR ---
PATIENT REPOSTITIONED WITH 2 PILLOWS UNDER BUTTOCKS. CALL LIGHT IN EASY REACH. DAUGHTER STEPPED OUT OF ROOM.
--- NOTE | 2021-09-25 11:06 | NUR ---
PER AM MEETING NO DISCHARGE PLANNED FOR TODAY. NO CHANGES IN DISCHARGE PLAN AT THIS TIME.
--- NOTE | 2021-09-25 12:30 | NUR ---
PATIENT SHIFT ASSESSMENT COMPLETED AND REMAINS UNCHANGED FROM PRIOR ASSESSMENT. PATIENT RESTING IN BED WITH HER DAUGHTER CAIN AT THE BEDSIDE. BS CHECKED. WILL CONTINUE TO CLOSELY MONITOR.
--- NOTE | 2021-09-25 13:35 | NUR ---
PATIENT RESTING IN BED. PATIENTS DAUGHTER STEPPED OUTSIDE TO WALK. LAB IN AND LABS WERE COMPLETED. PATIENT TOLERATED WELL. PATIETNS EYES CLEANED. PATIENT STATES HER PAIN IS BETTER CONTROLLED AT THIS TIME. PATIENT DENIES ANY FURTHER HALLUCINATIONS. WILL CONTINUE TO CLOSELY MONITOR.
--- NOTE | 2021-09-25 14:05 | NUR ---
PATIENTS PTT IS 75.4. THIS VALUE IS WITHIN THE RANGE THAT DOES NOT NEED TITRATED AND WILL NOW CHECK PTT IN THE AM SINCE 2 VALUES HAVE NOW BEEN WITHIN THE PARAMETERES OF NO CHANGES. VERIFIED WITH DREW MILES.
--- NOTE | 2021-09-25 15:14 | NUR ---
UPDATED MD ON PATIENTS PAIN CONTROLL. PER PATIENT THE OXYCODONE WORKED WELL FOR HER ON THE PRIOR DOSE. PATIENT DENIES ANY HALLUCINATIONS SINCE THIS AM. PER MD WILL CHANGE OXYCODONE TO EVERY 3 HOURS NEEDED. WILL CONTINUE TO CLOSELY MONITOR. SHERON MILES IS AT PATIENTS BEDSIDE AT THIS TIME TO PLACE MIDLINE.
--- NOTE | 2021-09-25 15:35 | NUR ---
MIDLINE INSERTION NOTE WAS ASKED TO PLACE MIDLINE FOR POOR ACCESS. PT AND PT'S FAMILY NOTIFIED ABOUT RISKS AND BENEFITS OF A MIDLINE AND ALL PARTIES GAVE APROVAL FOR THE MIDLINE TO BE PLACED. PT'S BASILIC AND BRACHIAL VEINS WERE EXAMINED. THE BASILIC WAS CHOSEN IT IS AWAY FROM THE ARTERY. ACCESSED ON THE FIRST ATTEMPT. RED NONPUSITILE BLOOD WAS RETURNED. PT TOLERATED WELL.
--- NOTE | 2021-09-25 17:41 | NUR ---
THIS RN IN WITH PATIENT FOR PAST HOUR. PATIENT NOW RESTING AT THIS TIME. PATIENT STATES PAIN IS TOLERABLE AT THIS TIME. PATIENT HAS SLEPT MORE TODAY, BUT IS EASILY WOKEN. WILL CONTINUE TO CLOSELY MONITOR.
--- NOTE | 2021-09-25 18:15 | NUR ---
THIS RN ASSISTED PATIENT UP TO THE BEDSIDE CAMMMODE. PATIENT IS A STAND-BY ASSIST AND TOLERATED WELL. NO OTHER NEEDS AT THIS TIME. WILL CONTINUE TO CLOSELY MONITOR.
--- NOTE | 2021-09-25 19:30 | NUR ---
REPORT RECEIVED FROM DAYSHIFT RN, PT RESTING IN BED AWAKE AND ALERT, IVF AND IV HEPARIN INFUSING AT ORDERED RATES. PT REPORTS NO NEEDS AT THIS TIME WHEN ASKED, CALL LIGHT IN REACH, BED IN LOWEST POSITION, WILL CONTINUE PLAN OF CARE.
--- NOTE | 2021-09-25 21:20 | NUR ---
PT ALERT AND ORIENTED LAYING IN BED AT THIS TIME HEPARIN AND IVF INFUSING AT PREVIOUS RATES. DR. SAMPSON IN AFTER ENTERING THE ROOM TO SPEAK TO THE PT. NEW ORDERS GIVEN AFTERWARDS TO INCREASE LR TO 150ML/HR AND INSERT A BARNETT CATHETER. CLEAR DIET ORDERS VERIFIED WITH DR. SAMPSON AT THIS TIME WELL. PT STILL RESTING IN BED AWAKE AND ALERT AND WAS INFORMED ON THE BARNETT CATHETER PLACEMENT. VITALS THEN TAKEN AND SCHEDULED MEDICATIONS ADMINISTERED (SEE MAR). INSULIN NOT GIVEN PER SLIDING SCALE (SEE MAR). PT DENIED THE NEED FOR PAIN MEDICATION AT THIS TIME WHEN ASKED AND REPORTS NO NAUSEA. JD CRONIN IN AND ASSISTED WITH PLACING THE BARNETT CATHETER, 210 ML OF URINE OBTAINED UPON INITIAL PLACEMENT THAT WAS ALEKSEY/CLEAR. PT THEN REPOSITIONED UP ON THE BED, PILLOWS PLACED UNDER PT HIPS. NEW BAG OF HEPARIN STARTED AND INFUSING AT PREVIOUS RATE OF 1000 UNITS/HR (SEE MAR). ICE WATER PROVIDED TO THE PT. PT REPORTS NO NEEDS AND IS RESTING IN BED WATCHING TV, CALL LIGHT IN REACH, WILL CONTINUE PLAN OF CARE.
--- NOTE | 2021-09-25 22:15 | NUR ---
PT LAYING IN BED AWAKE AND THIS TIME. IVF, HEPARIN DRIP, AND IV ABX INFUSING ORDERED. PT REPORTS NO NEEDS WHEN ASKED AT THIS TIME. SCHEDULED IV FLAGYL STARTED ORDERED AND NOW INFUSING (SEE MAR). 85ML OF URINE OBTAINED FROM BARNETT CATHETER AT THIS TIME STILL CONCENTRATED. PT REPORTS NO NEEDS WHEN ASKED AND STATES SHE WILL TRY TO GET SOME SLEEP. CALL LIGHT IN REACH, BED IN LOWEST POSITION, WILL CONTINUE PLAN OF CARE.
--- NOTE | 2021-09-25 23:10 | NUR ---
PT LAYING IN BED SLEEPING AT THIS TIME. IVF, IV ABX, AND HEPARIN INFUSING ORDERED. PT IN NO APPARENT DISTRESS AT THIS TIME, RESPIRATIONS EVEN AND UNLABORED, PT LEFT UNDISTURBED. CALL LIGHT IN REACH. 50ML URINE OBTAINED FOR THIS HOUR. NO FURTHER NEEDS ASSESSED AT THIS TIME, WILL CONTINUE PLAN OF CARE.
--- NOTE | 2021-09-26 00:10 | NUR ---
PT LAYING IN BED SLEEPING AT THIS TIME IVF, IV ABX, AND IV HEPARIN INFUSING AT PREVIOUS RATES. ASSESSMENT COMPLETED AT THIS TIME (SEE CHART). BOWEL TONES ACTIVE AT THIS TIME THROUGHOUT, ABDOMEN STILL DISTENDED, GAURDED, AND PAINFUL UPON PALPATION. PT REPORTS PAIN TO NOW BE 8/10 AND REQUESTED PRN PAIN MEDICATION. IV SITES AND MIDLINE SITE WNL AND FLUSHING WELL. AFTER ASSESSMENT PRN OXYCODONE PROVIDED (SEE MAR). PT PROVIDED WITH SIPS OF ICE WATER AND REPORTS NO FURTHER NEEDS AFTERWARDS. PT RESTING IN BED.VITALS TAKEN AND 60ML OF URINE OBTAINED FOR THE HOUR (SEE CHART). CALL LIGHT IN REACH, BED IN LOWEST POSITION, WILL CONTINUE PLAN OF CARE.
--- NOTE | 2021-09-26 01:15 | NUR ---
PT LAYING IN BED SLEEPING, IV ABX COMPLETED, IVF INFUSING, IV HEPARIN INFUSING AT PREVIOUS RATES. SP2 MONITOR PLACED BACK ON THE PT, NEW BAG OF MAINTENANCE IVF STARTED AND NOW INFUSING AT ORDERED RATE. URINE FOR THE HOUR WAS 130MLS. PT IN NO APPARENT DISTRESS AT THIS TIME, RESPIRATIONS EVEN AND UNLABORED, PT LEFT UNDISTURBED. CALL LIGHT IN REACH, WILL CONTINUE PLAN OF CARE.
--- NOTE | 2021-09-26 03:12 | NUR ---
PT LAYING IN BED SLEEPING, IVF AND HEPARIN INFUSING AT PREVIOUS RATES. 105 ML OF URINE OBTAINED FOR THE HOUR. PT IN NO APPARENT DISTRESS, RESPIRATIONS UNLABORED, PT LEFT UNDISTURBED, WILL CONTINUE PLAN OF CARE.
--- NOTE | 2021-09-26 04:16 | NUR ---
PT LAYING IN BED SLEEPING AT THIS TIME, IVF AND HEPARIN INFUSING AT PREVIOUS RATES. IV SITES AND MIDLINE SITE C/D/I. SITES FLUSHING EASILY, MIDLINE RETURNS BLOOD, IVF INFUSING INTO SITE. PT ASSESSMENT COMPLETED (SEE CHART). PT AWOKE DURING THIS TIME AND WAS ALERT AND ORIENTED. PT REPORTS 7/10 PAIN WHEN PALPATED, ABDOMEN GUARDED, DISTENDED, BOWEL TONES ACTIVE AT THIS TIME. VITALS TAKEN AFTER ASSESSMENT AND PRN OXYCODONE ADMINISTERED FOR PAIN (SEE MAR). PT REPORTS PROVIDED WITH SIPS OF WATER AND REPORTS NO FURTHER NEEDS AT THIS TIME. PT REMAINS RESTING IN BED, CALL LIGHT IN REACH, BED IN LOWEST POSITION, WILL CONTINUE PLAN OF CARE.
--- NOTE | 2021-09-26 06:20 | NUR ---
PT LAYING IN BED AWAKE AND ALERT AT THIS TIME AND ORIENTED X3. IVF AND IV HEPARIN MOMENTARILY STOPPED. LABS DRAWN FROM MIDLINE AFTER WASTE AND SENT TO THE LAB. HEPARIN AND FLUIDS THEN RESTARTED, IV ABX STARTED WELL AND NOW INFUSING AT ORDERED RATE (SEE MAR). PTS BARNETT EMTPIED AT THIS TIME OF ALEKSEY/YELLOW CLEAR URINE. PT'S DAUGHTER ENTERED THE ROOM AND REPORTED THAT THE PT WAS HAVING SOME HALLUCINATIONS EARLIER AND HAD REPORTED THAT THE CLOCK IN THE ROOM WAS MOVING BACKWARDS. PT CURRENTLY AWAKE AND ALERT WATCHING TV AND REPORTS NO NEEDS WHEN ASKED AND IS IN NO APPARENT DISTRESS. CALL LIGHT IN REACH, BED IN LOWEST POSITION, WILL CONTINUE PLAN OF CARE.
--- NOTE | 2021-09-26 06:50 | NUR ---
PT CBG ASSESSED AT THIS TIME AND WAS 78. PT RESTING IN BED AT THIS TIME AND AWOKE EASILY AND WAS ORIENTED X3. PT PROVIDED WITH JUICE AFTER ASSESSING CBG . PT REPORTS NO FURTHER NEEDS AND IS NOW RESTING IN BED WATCHING TV. IVF AND IV HEPARIN INFUSING, CALL LIGHT IN REACH, PT'S DAUGHTER AT THE BEDSIDE, WILL CONTINUE PLAN OF CARE.
--- NOTE | 2021-09-26 07:30 | NUR ---
REPORT RECIEVED. DAUGHTER IS IN ROOM.
--- NOTE | 2021-09-26 08:00 | NUR ---
ASSESSMENT DONE. OMIDEKD WITH PATIENT AND PATIENT DAUGHTER ABOUT POC FRO DAY. PATIENT IS VERY DROWSY. C/O ABD PAIN.
--- NOTE | 2021-09-26 09:00 | NUR ---
TOOK CLEAR LIQ DIET WELL.
--- NOTE | 2021-09-26 11:32 | NUR ---
LABS DRAWN. ZOFRAN GIVEN FOR NAUSEA.
--- NOTE | 2021-09-26 12:41 | NUR ---
K RIDER 40 MEQ HUNG AT 131 ML/HR DIRECTED. IVF OF D5LR HELD WHILE K RIDER INFUSING. HEPARIN GTT CONTINUES TO INFUSE AT 1000 UNITS/HR, EQUALS 20 ML/HR. TAKING FEW BITES OF CLEAR LIQUID LUNCH. CONTINUES TO PERIODS OF NAUSEA. ABD DISTENDED. HOB ELEVATED SLIGHTLY. FAMILY MEMBER IN ROOM.
--- NOTE | 2021-09-26 15:00 | NUR ---
HAS BEEN DROWSY MOST OF THE DAY.
--- NOTE | 2021-09-26 17:10 | NUR ---
ZOFRAN 4 MG IV GIVEN FOR NAUSEA. CLEAR LIQ DIET HELD AT THIS TIME. REPOSITIONED. K PHOS NOW INFUSING. KCL RIDER COMPLETE. K PHOS AND D5LR INFUSING AT TOTAL RATE OF 100 ML/HR.
--- NOTE | 2021-09-26 18:15 | NUR ---
SLEEPING, NO DISTRESS NOTED. IVF OF HEPARIN, K PHOS, D5LR. INFUSING.
--- NOTE | 2021-09-26 19:00 | NUR ---
REPORT TO NEXT SHIFT.
--- NOTE | 2021-09-26 19:30 | NUR ---
PATIENT'S IV PUMP ALARMING. MORE VOLUME ADDED TO HERPARIN INFUSION; PROGRAMED DOSE VERIFIED WITH EMAR. IV FLUIDS INFUSING AT 15 ML/HR WITH K+ PHOS INFUSION AT 85 ML/HR TO TOTAL 100 ML/HR IVF ORDER. PATIENT IS RESTING WITH EYES CLOSED. FAMILY AT THE BEDSIDE. VS STABLE. IV SITES WNL X3. FAMILY DENIED NEEDS AT THIS TIME.
--- NOTE | 2021-09-26 21:00 | NUR ---
EVENING MEDS PROVIDED PER ORDER. DISCUSSED PAIN MANAGEMENT WITH FAMILY AND PATIENT. MAIN COMPLAINT IS LOWER BACK PAIN WHICH PATIENT USES A HEATING PACK ON AT HOME. K-PAD SET UP FOR PATIENT TO USE ON HER LOWER BACK PRN. PATIENT DOSE NOT REQUIRE INSULIN COVERAGE THIS EVENING PER SSI ORDER. PATIENT DENIES NAUSEA AT THIS TIME. ABD IS MODERATELY DISTENDED AND FIRM, TENDER TO TOUCH. BOWEL SOUNDS HYPOACTIVE. PATIENT REPORTS PASSING GAS EARLIER TODAY. LUNG SOUNDS ARE CLEAR, DIM IN THE BASES. TOLERATING ROOM AIR. NO EDEMA NOTED IN LOWER EXTREMITIES. RIGHT ARM MAY HAVE SMALL AMOUNT OF SWELLING, ELEVATED ON A PILLOW. VS STABLE. BARNETT EMPTIED, GOOD OUTPUT. BARNETT CARE DONE. LEG BAND PLACED AND ADJUSTED BY PATIENT'S DAUGHTER. PATIENT REPOSITIONED, HIPS FLOATED AND HEELS FLOATED. FRESH ICE AND SODA PROVIDED. PATIENT DENIED ANY FURTHER NEEDS. FAMILY REMAINS AT BEDSIDE. CALL LIGHT IN REACH.
--- NOTE | 2021-09-27 00:40 | NUR ---
NEW BAG OF HEPARIN STARTED, NO TITRATION. 1000 UNITS/HR. PATIENT LAYING ON LEFT SIDE WHEN RN ENTERED. ASSISTED PATIENT TO TURN AND LAY ON HER LEFT SIDE WITH PILLOWS TO PROVIDE SUPPORT. IV SITES WNL X3. IV FLUIDS, ABX AND HEPARIN INFUSING. PATIENT VS STABLE. LARGE URINE OUTPUT.
--- NOTE | 2021-09-27 03:21 | NUR ---
PATIENT REPOSTIIONED UP IN THE BED. VS STABLE. BARNETT HAS GOOD OUTPUT. IV FLUIDS PER ORDER, SITE WNL. PATIENT DENIED ANY FURTHER NEEDS. K-PAD ON LOW HEAT SETTING.
--- NOTE | 2021-09-27 04:30 | NUR ---
PATIENT RESTING QUIETLY IN BED. OPENS EYES TO VOICE. PATIENT DENIED NEEDS. REPORTS IMPROVED COMFORT WITH REPOSITIONING AND K-PAD ON HER BACK. IV FLUIDS PER ORDER, SITE WNL X3. GOOD OUTPUT. VS STABLE.
--- NOTE | 2021-09-27 06:00 | NUR ---
MORNING LABS DRAWN FROM MIDLINE. LAB IN ROOM TO LABEL SAMPLE. PATIENT RESTING WITH EYES CLOSED. DENIES NEEDS. VS STABLE. BARNETT EMPTIED. LAB RESULTS SHOW THERIPUTIC PTT; NO TITRATION REQUIRED.
--- NOTE | 2021-09-27 07:30 | NUR ---
REPORT RECIEVED. ACCUCHECK-122. DAUGHTER IS IN ROOM. PATIENT C/O ABD DISCOMFORT. INCREASE WITH MOVEMENT. REPOSITIONED FOR COMFORT. TALKED WITH PATIENT AND DAUGHTER ABOUT POC OF CARE FOR DAY, DAUGHTER INDICATES UNDERSTANDING.
--- NOTE | 2021-09-27 08:00 | NUR ---
COMPLETE ASSESSMENT DONE. RESTING. ENC COUGH AND DEEP BREATHING.
--- NOTE | 2021-09-27 10:00 | NUR ---
UP TO COMMODE WITH ASSIST TO EXPELL LARGE PASTY BROWN STOOL, HEMATEST NEGATIVE. C/O INCREASED PAIN WITH MOVEMENT. SPONGE BATH GIVEN WHILE UP TO COMMODE. BACK TO BED W/O INCIDENT.
--- NOTE | 2021-09-27 10:20 | NUR ---
DR. ROSARIO AND DR. SAMPSON AT BEDSIDE TO ASSESS PATIENT, AND TALK WITH PATIENT AND PATIENT DAUGHTER.
--- NOTE | 2021-09-27 14:06 | NUR ---
SCHEDULED MED PROVIDED. PT WAKES TO VOICE, NO NEEDS AT THIS TIME. DAUGHTER IN ROOM. CALL LIGHT IN REACH.
--- NOTE | 2021-09-27 14:21 | NUR ---
aPTT RESULTS BACK AT 114, HEPARIN DRIP STOPPED PER PROTOCOL, PLAN TO RESTART IN THIRTY MINUTES AT DECREASED RATE.
--- NOTE | 2021-09-27 14:50 | NUR ---
HEPARIN GTT RESTARTED AT 900 UNITS/HR MOST RECENT PTT 114. NEXT PTT TO BE AT 2100 TONIGHT.
--- NOTE | 2021-09-27 15:14 | NUR ---
NO FUTHER CHANGES. FAMILY MEMBERS ARE IN ROOM.
--- NOTE | 2021-09-27 16:15 | NUR ---
ASSESSMENT UNCHANGED. IS MORE AWAKE AT THIS TIME. IVF PATIENT. HEPARIN GTT REMAINS AT 900 UNITS /HR.
--- NOTE | 2021-09-27 16:58 | NUR ---
ACCUCHECK 226.
--- NOTE | 2021-09-27 17:00 | NUR ---
3 UNITS INSULIN GIVEN. PATIENT SITTING UP IN BED READY TO TAKE CLEAR LIQUID DINNER.
--- NOTE | 2021-09-27 18:00 | NUR ---
TOOK CLEAR LIQUID DIET WELL. IS MORE ALERT, SITTING UP IN BED WATCHING TV. HEPARIN GTT INFUSING AT 900 UNITS/HR. IVF AT 80 ML/HR. PATIENT DAUGHTER REMAINS IN ROOM.
--- NOTE | 2021-09-27 20:30 | NUR ---
PATIENT REPOSITIONED IN THE BED. VS STABLE. PATIENT REPORTS PAIN WITH MOVEMENT AND SOME MILD NAUSEA FROM HER ABD BEING DISTENDED. STATES "ITS LIKE A TIGHT BAND".
--- NOTE | 2021-09-27 21:20 | NUR ---
PATIENT PROVIDED WITH PRN PAIN MEDS AND NAUSEA MEDS WITH SCHEDULED MEDS. NO SSI REQUIRED FOR CURRENT BLOOD GLUCOSE. PATIENT IS TOLERATING ROOM AIR. VS STABLE. ABD IS LARGELY DISTENDED AND FIRM. BOWEL SOUNDS HYPOACTIVE. PATIENT REPORTS HAVING A BM TODAY WITH NO RELIEF. BARNETT CARE DONE, GOOD OUTPUT. IV FLUIDS AND ABX PER ORDER, SITES WNL X3. LABS DRAWN FROM MIDLINE; BRISK BLOOD RETURN AND EASY TO FLUSH.
--- NOTE | 2021-09-28 00:05 | NUR ---
NEW BAG IV FLUIDS STARTED. PATIENT APPEARS TO BE RESTING IWHT EYES CLOSED. FAMILY IN ROOM ALSO RESTING. VS STABLE. BARNETT DRAINING FREELY. IV SITES WNL X3.
--- NOTE | 2021-09-28 04:15 | NUR ---
PATIENT APPEARS TO BE SLEEPING SOUNDLY. VS STABLE. BARNETT HAS GOOD URINE OUTPUT. SLIGHTLY ALEKSEY IN COLOR. IV FLUIDS AND HEPARIN INFUSING PER ORDER. SITE WNL X2. FAMILY AT BEDSIDE.
--- NOTE | 2021-09-28 05:30 | NUR ---
ASSISTED LAB IN DRAWING MRONING LABS. PATIENT REPORTS SOME PAIN IN ABD BUT NOT UNBEARABLE. PATIENT UP TO THE CHAIR. ASSISTED WITH MORNING CARES. ABD IS TIGHT AND TENDER. BARNETT EMPTIED. IV FLUIDS PER ORDER, SITES WNL.
--- NOTE | 2021-09-28 07:08 | NUR ---
ABX STARTED PER ORDER. PATIENT UP IN THE CHAIR. DENIES ANY NEEDS. CALL LIGHT IN REACH.
--- NOTE | 2021-09-28 07:30 | NUR ---
REPORT RECIEVED. PATIENT IS SITTING UP IN CHAIR.
--- NOTE | 2021-09-28 08:00 | NUR ---
ORAL CONTRAST GIVEN PATIENT TO HAVE CT OF ABD THIS MORNING. ASSESSMENT DONE. HEPARIN GTT INFUSING AT 900 UNITS HR. TALKED WITH PATIENT ABOUT POC FOR DAY, WILL REINFORCETHIS THROUGH DAY.
--- NOTE | 2021-09-28 09:25 | NUR ---
REMAINS IN CHAIR. SLEEPING.
--- NOTE | 2021-09-28 10:00 | NUR ---
TO CT VIA CHAIR. RN AND FREELANCE PATTERNMAKER WITH PATIENT.
--- NOTE | 2021-09-28 10:30 | NUR ---
RETURNED TO CCU. BACK TO BED.
--- NOTE | 2021-09-28 12:00 | NUR ---
HEPARIN GTT OFF FOR 1 HOUR PTT 151.
--- NOTE | 2021-09-28 13:00 | NUR ---
HEPARIN GTT RESTARTED AT 700 UNITS.
--- NOTE | 2021-09-28 14:05 | NUR ---
PATIENT RESTING QUIETLY IN BED. SISTER IN ROOM AT THIS TIME. VITALS CHARTED, CALL LIGHT IN EASY REACH
--- NOTE | 2021-09-28 16:46 | NUR ---
NG TO LOW SUCTION PLACED BY Lia WEEKS RN. PATIENT RECIEVED MORPHINE 2 MG IV FOR THIS PLACEMENT.
--- NOTE | 2021-09-28 18:52 | NUR ---
LAB DRAWN. NG TO LCS, IVF TOTAL 100 ML/HR. BARNETT CATH PATENT
--- NOTE | 2021-09-28 19:30 | NUR ---
REPORT TO NEXT SHIFT. FAMILY MEMBERS ARE IN ROOM.
--- NOTE | 2021-09-28 21:18 | NUR ---
PT LAYING IN BED AWAKE AND ALERT, HEPARIN AND IVF INFUSING AT ORDERED RATES. VITALS TAKEN AT THIS TIME AND PT. ASSESSED. PT ORIENTED X4, DENIES NUMBNESS OR TINGLING TO EXTREMTIES, LUNGS CLEAR IN UPPER LOBES AND DIMINISHED IN THE BASES, HEART REGULAR IN RYTHM, MURMUR PRESENT, HYPOACTIVE BOWEL TONES PRESENT, ABDOMEN DISTENDED, PAINFUL WHEN PALPATED AND GUARDED. PT REPORTS OVERALL PAIN AT 7/10 TO HER ABDOMEN AND NARE DUE TO HER NG TUBE THAT IS ON LOW INTERMITTEND SUCTION WITH BILE PRESENT IN TUBE. PULSES STRONG, MIDLINE SITE C/D/I, FLUSHES WELL AND RETURNS BLOOD. SCHEDULED MEDICATIONS ADMINISTERED (SEE MAR), INSULIN HELD PER SLIDING SCALE, MORPHINE ADMINISTERED FOR PAIN, NG TUBE TAKEN OFF SUCTION AFTER PO MEDICATIONS ADMINISTERED THROUGH NG TUBE. IV ABX NOW INFUSING ORDERED (SEE MAR). PT REMAINS RESTING IN BED AND REPORTS NO NEEDS WHEN ASKED. BARNETT EMPTIED OF 140ML OF URINE. WILL CONTINUE PLAN OF CARE. CALL LIGHT IN REACH.
--- NOTE | 2021-09-28 22:30 | NUR ---
PT LAYING IN BED SLEEPING AT THIS TIME, IVF, IV HEPARIN, AND IV ABX INFUSING ORDERED. PT IN NO APPARENT DISTRESS, NG TUBE STILL CLAMPED AT THIS TIME. SCHEDULED IV ABX STARTED AND NOW INFUSING AT ORDERED RATE. PT LEFT UNDISTURBED, NO APPARENT NEEDS NOTED AT THIS TIME, WILL CONTINUE PLAN OF CARE. CALL LIGHT IN REACH.
--- NOTE | 2021-09-28 23:10 | NUR ---
PT LAYING IN BED SLEEPING AT THIS TIME IN NO APPARENT DISTRESS. NG TUBE CONNECTED TO LOW INTERMITTENT SUCTION AT THIS TIME. URINE OUTPUT FOR THE LAST TWO HOURS WAS 60ML, URINE CONCENTRATED AT THIS TIME. IVF, HEPARIN, AND IV ABX INFUSING AT ORDERED RATES. NO NEEDS NOTED AT THIS TIME, PT LEFT UNDISTURBED AND REMAINS SLEEPING, CALL LIGHT IN REACH, WILL CONTINUE PLAN OF CARE.
--- NOTE | 2021-09-29 01:00 | NUR ---
PT LAYING IN BED SLEEPING AT THIS TIME, NG ON LOW INTERMITTENT SUCTION, IVF, IV ABX, AND IV HEPARIN INFUSING AT PREVIOUS RATES. ASSESSMENT COMPLETED AT THIS TIME, NO CHANGES NOTED AT THIS TIME. PT IN NO APPARENT DISTRESS AND REMAINS SLEEPING IN THE BED. PT'S DAUGHTER AT THE BEDSIDE RECLINER SLEEPING WELL. NO FURTHER NEEDS ASSESSED AT THIS TIME, WILL CONTINUE PLAN OF CARE.
--- NOTE | 2021-09-29 01:20 | NUR ---
DR. SAMPSON UPDATED ON PT AT THIS TIME, DECREASING URINE OUTPUT OF 20ML/HR IN LAST TWO HOURS REPORTED. NEW ORDERS GIVEN TO INCREASE D5LR TO 125, ADMINISTER A 250 ML BOLUS OF LR OVER 1 HOUR, AND TO NOTIFY IN URINE OUTPUT IS UNDER 25ML/HR FOR THE NEXT TWO HOURS. WILL CONITNUE PLAN OF CARE.
--- NOTE | 2021-09-29 01:35 | NUR ---
PT SLEEPING IN BED AT THIS TIME IN NO APPARENT DISTRESS. D5LR INCREASED TO 125ML/HR, 250ML BOLUS OF LR STARTED (SEE MAR). PT REMIANS ASLEEP AND WAS LEFT UNDISTURBED, WILL CONTINUE PLAN OF CARE. CALL LIGHT IN REACH.
--- NOTE | 2021-09-29 04:55 | NUR ---
PT LAYING IN BED SLEEPING AT THIS TIME, IVF AND HEPARIN INFUSING ORDERED. PT AWOKE AT THIS TIME AND WAS ALERT AND ORIENTED. VITALS TAKEN AND ASSESSMENT COMPLETED (SEE CHART). ABDOMEN UNCHANGED, STILL DISTENDED, BOWEL TONES HYPOACTIVE AT THIS TIME. PT REPORTS 7-8/10 PAIN IN HER ABDOMEN AND NARE FROM THE NG TUBE, PRN MORPHINE ADMINISTERED (SEE MAR). ICE CHIPS THEN PROVIDED TO PATIENT AND CONSENT FOR CENTRAL LINE SIGNED AT THIS TIME. PT REPORTS NO FURTHER NEEDS AT THIS TIME AND IS RESTING IN BED, WILL CONTINUE PLAN OF CARE. CALL LIGHT IN REACH, BED IN LOWEST POSTIION.
--- NOTE | 2021-09-29 06:20 | NUR ---
PT LAYING IN BED SLEEPING AT THIS TIME, IVF AND HEPARIN INFUSING ORDERED. NEW BAG OF IVF STARTED ALONG WITH SCHEDULED IV ABX (SEE MAR). 28ML OF URINE OBTAINED FOR THE HOUR. NG TUBE STILL ON AT LOW INTERMITTENT SUCTION, BILE DRAINING, 150ML PRESENT IN THE CONTAINER FOR THE SHIFT. PT IN NO APPARENT DISTRESS AT THIS TIME AND WAS LEFT UNDISTURBED AND REMAINS ASLEEP. NO FURTHER NEEDS ASSESSED AT THIS TIME, WILL CONTINUE PLAN OF CARE. CALL LIGHT IN REACH, BED IN LOWEST POSITION.
--- NOTE | 2021-09-29 06:45 | NUR ---
DR. SAMPSON UPDATED ON PT'S APTT AND HEPARIN DRIP RATE REMAINING AT 700 UNITS/HR, WILL CONTINUE PLAN OF CARE.
--- NOTE | 2021-09-29 07:30 | NUR ---
REPORT RECIEVED. PATIENT IS RESTFUL IN BED. IVF INFUSING AT 125 ML/HR.
--- NOTE | 2021-09-29 08:00 | NUR ---
ASSESSMENT DONE. PATIENT IS DROWSY. WILL FOLLOW COMMANDS.
--- NOTE | 2021-09-29 08:40 | NUR ---
PATIENT RESTING IN BED, EYES CLOSED. DAUGHTER IN ROOM- CAREGIVER TRAY ORDERED. BARNETT EMPTIED, VITALS AND I&OS CHARTED. NO OTHER NEEDS AT THIS TIME
--- NOTE | 2021-09-29 10:27 | NUR ---
BEDBATH COMPLETE, NEW GOWN AND LINENS PROVIDED. NG IN PLACE. PATIENT UP TO CHAIR. DAUGHTER ASSISTING WITH CARES. CALL LIGHT IN EASY REACH
--- NOTE | 2021-09-29 10:30 | NUR ---
DR. SAMPSON HERE TO SEE PATIENT. ORDERS RECIEVED. PATIENT IS SITTNG UP IN CHAIR. DAUGHTER IS IN ROOM. NG CLAMPED MEDS GIVEN PER NGT.
--- NOTE | 2021-09-29 12:05 | NUR ---
CONTINUE TO SIT IN CHAIR. ANGELY LINARES. NGT TO LIS. IVF PATENT. ALBUMIN INFUSING PER ORDERS.
--- NOTE | 2021-09-29 13:43 | NUR ---
ptt 66. HEPARIN GTT INCREASED TO 800 UNITS HR.
--- NOTE | 2021-09-29 14:46 | NUR ---
PATIENT RESTING IN BED, VITALS AND I&OS CHARTED. BARNETT EMPTIED. CALL LIGHT IN EASY REACH, NO OTHER NEEDS AT THIS TIME
--- NOTE | 2021-09-29 17:20 | NUR ---
Spoke with pt and her daughter Brenda. They have been discussing needs for when pt discharges. Pt lives with daughter and granddaughter. Granddaughter has a state paid cg, her boyfriend. Per Brenda he feels he could also care for Marianne. Brenda is considering taking time off, we discussed FMLA. Pt is able to walk in the room. We also discussed HH and OP therapy at the [facility]. Let them know I will assist anyway I can when she gets closer to dc.
--- NOTE | 2021-09-29 20:10 | NUR ---
PT RESTING IN BED AT THIS TIME AWAKE, IVF AND HEPARIN INFUSING AT ORDERED RATES, NG TUBE ON AT LIS. BILE PRESENT IN TUBING. PT REPORTS NO NEEDS AT THIS TIME WHEN ASKED. SCHEDULED LABS DRAWN FROM MIDLINE AT THIS TIME AFTER MOMENTARILY STOPPING FLUIDS AND WASTING. LABS SENT, PT REPORTS NO NEEDS, CALL LIGHT IN REACH, BED IN LOWEST POSITION, WILL CONTINUE PLAN OF CARE.
--- NOTE | 2021-09-29 21:40 | NUR ---
PT RESTING IN BED AWAKE AND ALERT IVF AND IV HEPARIN INFUSING AT ORDERED RATE. PT REQUESTS A PRN LOZENGE AT THIS TIME. VITALS TAKEN AT THIS TIME. NG TUBE ON LOW INTERMITTENT SUCTION, GREEN BILE PRESENT IN TUBING. PT TAKEN OFF OF SUCTION PRIOR TO MEDICATION ADMINISTRATION. 40ML WATER FLUSH USED AT THIS TIME. SCHEDULED MEDICATION ADMINISTERED ALONG WITH PRN CEPACOL LOZENGE (SEE MAR). INSULIN HELD PER SLIDING SCALE (SEE MAR). PT DENIES THE NEED FOR PAIN MEDICATION AT THIS TIME. ASSESSMENT COMPLETED AT THIS TIME. PT ALERT AND ORIENTED, MURMUR PRESENT, RYTHM REGULAR, LUNGS CLEAR IN UPPER LOBES, DIMINISHED IN THE BASES, BOWEL TONES RARE AT THIS TIME. ABDOMEN DISTENDED AND GUARDED. AFTER ASSESSMENT PT REPORTS NO FURTHER NEEDS AND IS NOW RESTING IN BED, WARM BLANKETS PROVIDED TO PT. NEW ORDERS GIVEN BY DR. SAMPSON TO DECREASE THE HEPARIN DRIP TO 750 UNITS/HR, DRIP TITRATED DOWN TO ORDERED RATE. PT REPORTS NO FURTHER NEEDS, WILL CONTINUE PLAN OF CARE. CALL LIGHT IN REACH, BED IN LOWEST POSITION.
--- NOTE | 2021-09-29 22:30 | NUR ---
PT RESTING IN BED SLEEPING AT THIS TIME NG TUBE STILL CLAMPED. IVF AND IV HEPARIN INFUSING AT ORDERED RATE. IV ALBUMIN COMPLETED, FLAGYL STARTED AND INFUSING AT ORDERED RATE (SEE MAR). PT REMAINS ASLEEP AT THIS TIME AND WAS LEFT UNDISTURBED, CALL LIGHT IN REACH, WILL CONTINUE PLAN OF CARE.
--- NOTE | 2021-09-29 22:40 | NUR ---
PT LAYING IN BED SLEEPING ON THE BIPAP AT THIS TIME AT PREVIOUS SETTINGS, IVF INFUSING ORDERED. SCHEDULED MAGNESIUM BAG 2 OF 2 STARTED AND NOW INFUSING AT ORDERED RATE. CBG ASSESSED AND WAS 136 MG/DL AT THIS TIME. PT AWOKE MOMENTARILY PRIOR TO CBG CHECK AND IS STILL DROWSY AND RETURNED TO SLEEP. NO FURTHER NEEDS ASSESSED AT THIS TIME, WILL CONTINUE PLAN OF CARE.
--- NOTE | 2021-09-29 23:05 | NUR ---
FLAGYL COMPLETED. MIDLINE ASSESSED, BRISK BLOOD RETURN. SL. pt RESTING IN BED WITH EYES CLOSED, RESPIRATIONS REGULAR. CALL LIGHT WITHIN REACH.
--- NOTE | 2021-09-30 00:08 | NUR ---
PT LAYING IN BED SLEEPING AT THIS TIME, IVF INFUSING ORDERED. PT AWOKE EASILY AND WAS ORIENTED. NG TUBE PUT BACK ON LIS AT THIS TIME AFTER A 40ML WATER FLUSH. NEW BAG OF D5LR STARTED AT ORDERED RATE. PT REPORTS THROAT SORENESS, DENIES THE NEED FOR PAIN MEDICATION BUT REQUESTS PRN CEPACOL LOZENGE. PRN CEPACOL LOZENGE PROVIDED. VITALS AND ASSESSMENT COMPLETED, NO CHANGES NOTED. ABDOMEN SEVERELY DISTENED, GUARDED, BOWEL TONES RARE, PAINFUL WHEN PALPATED. PT REPORTS NO FURTHER NEEDS AT THIS TIME AND WAS REPOSITIONED IN BED, PILLOWS PLACED UNDER LEFT HIP, CALL LIGHT IN REACH, BED IN LOWEST POSITION, WILL CONTINUE PLAN OF CARE.
--- NOTE | 2021-09-30 03:00 | NUR ---
PT LAYING IN BED SLEEPING, IV PUMP ALARMING, IV SITE WNL, FLUSHES WELL, FLUIDS RESTARTED. HEPARIN STILL INFUSING ORDERED. PT AWOKE AT THIS TIME AND STATED HER THROAT WAS FEELING SOAR AND ASKED FOR A PRN CEPACOL LOZENGE. PT ORIENTED X4 AT THIS TIME WHEN ASKED. PRN CEPACOL ADMINISTERED, PT REPORTS NO FURTHER NEEDS AT THIS TIME, CALL LIGHT IN REACH, BED IN LOWEST POSTION, WILL CONTINUE PLAN OF CARE.
--- NOTE | 2021-09-30 04:30 | NUR ---
PT LAYING IN BED AT THIS TIME SLEEPING, IVF AND HEPARIN INFUSING AT ORDERED RATES. PT AWOKE EASILY AND WAS ORIENTED X3, VITALS TAKEN (SEE CHART). PT HAD COMPLAINTS OF NARE PAIN, SLIGHT ABDOMINAL PAIN, AND LEFT NARE PAIN. PRN CEPACOL PROVIDED (SEE MAR). PT NG FLUSHED AFTERWARDS AND REMAINS ON LIS. ASSESSMENT THEN COMPLETED. MURMUR PRESENT, FINE CRACKLES HEARD IN UPPER LOBES BILATERALLY AND DIMINISHED WITH FINE CRACKLES IN THE BASES. PT ENCOURAGED TO USE THE I.S AND DEEP BREATH/COUGH. ABDOMEN DISTENDED, HYPOACTIVE TONES PRESENT, ABDOMEN GUARDED, PAINFUL WHEN PALPATED. AFTER ASSESSMENT PT REQUESTED PRN PAIN MEDICATION, 2MG PRN MORPHINE ADMINISTERED FOR NARE PAIN AND ABDOMINAL PAIN. PT REPOSITIONED ON THE BED AFTERWARDS, PILLOWS PLACED UNDER RIGHT SIDE FOR COMFORT. NO FURTHER NEEDS REPORTED. WILL CONTINUE PLAN OF CARE. CALL LIGHT IN REACH, BED IN LOWEST POSITION.
--- NOTE | 2021-09-30 05:48 | NUR ---
PT LAYING IN BED SLEEPING AT THIS TIME. IVF AND HEPARIN INFUSING ORDERED, NG TUBE ON AT LIS. SCHEDULED IV FLAGYL STARTED AND NOW INFUSING, NO FURTHER NEEDS ASSESSED AT THIS TIME. 250ML OF CLEAR/YELLOW BILE IN CANNISTER FOR THE SHIFT. CALL LIGHT IN REACH, BED IN LOWEST POSITION, WILL CONTINUE PLAN OF CARE.
--- NOTE | 2021-09-30 06:40 | NUR ---
DR. SAMPSON UPDATED ON PT'S APTT AND OUTPUT, ORDERS GIVEN TO MAINTAIN HEPARIN DRIP AT 750 UNITS/HR, WILL CONTINUE PLAN OF CARE.
--- NOTE | 2021-09-30 08:19 | NUR ---
resting after po medications given. albumin hung. ASSESSMENT DONE. NGT TO LIS. NOW CLAMPED MEDS GIVEN. DENIES ABD PAIN AT THIS TIME. TALKED WITH PATIENT ABOUT POC FOR DAY, INDICATES UNDERSTANDING. [employer] (FIG) PATENT.
--- NOTE | 2021-09-30 08:36 | NUR ---
vitals and i&os charted. burnett emptied and room tidied
--- NOTE | 2021-09-30 09:06 | NUR ---
Pt sleeping,not awakened.
--- NOTE | 2021-09-30 10:41 | NUR ---
PICC INSERTION NOTE ORDERS RECIEVED TO EVALUATE CARMELO FOR POSSIBLE PICC INSERTION DUE TO HER NEED FOR TPN. HER LEFT ARM IS EXCLUDED A SITE DUE TO RESTRICTED EXTREMITY STATUS. SHE IS ON A HEPARIN DRIP WHICH MAKES A EJ OR IJ APPROACH A HIGH RISK PROCEDURE. SHE CURENTLY HAS A 4 FR 10CM MIDLINE IN PLACE IN HER RIGHT BASILIC VEIN WHICH IS THE ONLY SUITABLE VEIN IN HER RIGHT ARM. AFTER REVIEWING THE CHART AND DISCUSSING THE PLAN WITH THE MD, CCU RN, AND OTHER PICC NURSES, WE ARE ELECTING TO EXCHANGE HER MIDLINE WITH A CENTRAL LINE. THE RISK AND COMPLICATIONS OF THE PROCEDURE ARE DISCUSSED WITH THE PATIENT AND THE RISK FOR INFECTION AND BLEEDING ARE HIGHLIGHTED FOR THE PATIENT. INFORMED CONSENT WAS SIGNED PRIOR TO THE START OF THE PROCEDURE. THE RIGHT ARM WAS COPIOUSLY CLEANED AND PREPPED AND THE MIDLINE WAS WITHDRAWN 5CM. THE PATIENT WAS DRAPED AND THE MIDLINE WAS STABILIZED AND CUT WITH 5CM EXPOSED AND 5CM REMAINING IN THE PATIENT. BRISK DARK RED NONPULSATILE BLEEDING WAS SEEN FLOWING FROM THE LINE. A GUIDEWIRE WAS PASSED UP THE MIDLINE AND THE MIDLINE REMOVED. LOCAL ANESTHETIC WAS USED AND THE INTRODUCER WAS PASSED OVER THE GUIDEWIRE. AN ATTEMPT WAS MADE TO DILATE THE VESSEL BUT SCAR TISSUE WAS MAKING THIS IMPOSIBLE. AN 11 BLADE WAS USED TO OPEN A 0.5CM AREA ALONG THE WIRE AND THEN THE INTRODUCER PASSED EASILY UP THE ARM. THE GUIDWIRE WAS REMOVED AND THERE WERE NO PROBLEMS ADVANCING THE PICC. MAGNETIC TRACKING AND 3CG WAS USED TO CONFIRM THE PICC WAS IN A CENTRAL LOCATION. A STERILE DRESSING WAS APPLIED AND A NONSTERILE LIGHT PRESSURE DRESSING WAS APPLIED OVER THE AREA TO MINIMIZE BLEEDING AND BRUSING. A CXR WAS TAKEN AND WE AWAIT THE RESULTS OF THIS PRIOR TO USING THE LINE.
--- NOTE | 2021-09-30 11:00 | NUR ---
UP TO COMMODE TO EXPELL LIQ STOOL, HEMATEST POSITIVE. DR. SAMPSON AWARE. TO SHOWER WITH ASSIST.
--- NOTE | 2021-09-30 11:20 | NUR ---
PATIENT IN SHOWER WITH RN MAIA ASSISTING. LINENS CHANGED. PATIENT UP IN CHAIR AT THIS TIME. CALL LIGHT IN EASY REAH
--- NOTE | 2021-09-30 11:30 | NUR ---
TOLERATED SHOWER WELL. AMBULATED TO CHAIR.
--- NOTE | 2021-09-30 12:00 | NUR ---
ASSESSMENT DONE. UNCHANGED.
--- NOTE | 2021-09-30 15:00 | NUR ---
TO COMMODE TO EXPELL SMALL LIQUID STOOL. THEN TO BED. FAMILY MEMBERS ARE IN ROOM.
--- NOTE | 2021-09-30 15:16 | NUR ---
PATEINT RECLINED IN RECLINER, LEGS ELEVATED. VISITORS IN ROOM. VITALS AND I&OS CHARTED. BARNETT EMPTIED
--- NOTE | 2021-09-30 16:00 | NUR ---
ATTEMPTED TWICE TO START PERIPHERAL IV SITE, UNABLE AT THIS TIME. TPN/LIPIDS TO BE HUNG.
--- NOTE | 2021-09-30 17:00 | NUR ---
ACCUCHECH 143, INSULIN NOT GIVEN AT THIS TIME.
--- NOTE | 2021-09-30 21:00 | NUR ---
PATIENT PROVIDED WITH EVENING MEDS AND PRN LOZENGES. PATIENT REPOSITIONED IN BED. DENIES ANY PAIN OR NAUSEA. VS STABLE. PICC LINE INFUSING HEPARIN AND TPN/LIPIDS. PERIPHERAL SITE ESTABLISHED FOR IV ABX INFUSING. BARNETT EMPTIED. PATIENT PROVIDED ICE CHIPS. DENIES ANY OTHER NEEDS. CALL LIGHT IN REACH.
--- NOTE | 2021-09-30 23:57 | NUR ---
PATIENT REPOSITIONED. DENIES PAIN. VS STABLE. BARNETT DRAINING FREELY, OUTPUT QS. PICC LINE WNL. NO CONCERNS AT THIS TIME. CALL LIGHT IN REACH.
--- NOTE | 2021-10-01 04:26 | NUR ---
LIPID INFUSION FINISHED. LINE DISCONNECTED. PATIENT RESTING IN BED. REPORTS HAVING MOVES HERSELF IN THE BED AND CURRENTLY FEELING COMFORTABLE. DOES REPORT THAT SHE HAS HAD SOME PAIN WITH THE BP CUFF ON HER RIGHT LEG. CUFF REMOVED TO ALLOW FOR A BREAK. PATIENT OTHERWISE FEELS WELL. NO PAIN OR NAUSEA. BOWEL SOUNDS ACTIVE, ABD MILD DISTENSION. LUNG SOUNDS ARE CLEAR AND DIM, TOLERATING ROOM AIR. OCCATIONALLY USING IS WHILE AWAKE. HEPARIN AND TPN INFUSING PER ORDER INTO PICC LINE, SITE WNL. ENCOURAGED PATIENT TO REST AND MADE PLAN TO GET HER TO THE CHAIR PRIOR TO DAYSHIFT ARRIVAL. CALL LIGHT IN REACH.
--- NOTE | 2021-10-01 05:51 | NUR ---
LAVBS DRAWN FROM PICC LINE. TPN AND HEPARIN PLACED IN STANDBY FOR >2MINS. FLUSHED EACH LINE WITH 10ML NS. LINE CLAMPED AND SAMPLE DRAWN DIRECTLY FROM LINE. 6ML WASTED, SAMPLE COLLECTED. NEW CLAVE PLACED AND FLUSHED WITH 10ML NS. HEPARIN RESTARTED IN THIS LINE. TPN LINE CLAVE ALSO CHANGED AND FLUSHED, RESTARTED TPN PER ORDER. MED INFUSIONS STOPPED LESS THAN 5MINS TOTAL. PATIENT WOKE BREIGLY, DENIED ANY CONCERNS. IV ABX STARTED PER ORDER IN PERIPHERAL SITE. BARNETT EMPTIED. CALL LIGHT IN REACH.
--- NOTE | 2021-10-01 06:58 | NUR ---
DISCUSSED APTT RESULTS WITH DR. SAMPSON. ORDERS TO INCREASE HEPARIN DRIP BY 50 UNITS AND RECHECK IN 6 HOURS. THIS DONE AND VERIFIED WITH HIPOLITO MILES.
--- NOTE | 2021-10-01 07:45 | NUR ---
PATIENT RESTING IN BED. PATIENT REPORT RECIEVED FROM COMMUNICATIONS AGENT RN. PATIENT HAS CALL LIGHT AND CALLS APPROPRIATELY. WILL CONTINUE TO CLOSELY MONITOR.
--- NOTE | 2021-10-01 08:30 | NUR ---
PATIENTS ASSESSMENT COMPLETED. PATIENT IS RESTING IN BED AT THIS TIME. PATIENTS BREATH SOUNDS CLEAR AND CRACKLES IN THE BASES. BOWEL TONES HYPOACTIVE. BILATERAL LOWER EXTREMITY EDEMA NOTED. PATIENT ASSISTED UP TO THE CAMMODE AND THEN NOW SITTING IN THE CHAIR. PATIENT DENIES ANY PAIN AT THIS TIME. BARNETT CATHETER IN PLACE WITH CLEAR YELLOW URINE PRESENT. PATIENT DENIES ANY NEEDS AT THIS TIME. CALL LIGHT IN REACH. WILL CONTINUE TO CLOSELY MONITOR.
--- NOTE | 2021-10-01 08:36 | NUR ---
PATIENT SITTING UP IN RECLINER. VITALS AND I&OS CHARTED. BARNETT EMPTIED AND PATIENT BRUSHING TEETH AT THIS TIME. LINENS CHANGED AND GARBAGE EMPTIED. CALL LIGHT IN EASY REACH, RN IN ROOM.
--- NOTE | 2021-10-01 10:50 | NUR ---
PATIENT IS UP SITTING IN THE CHAIR. HEPARIN GTT CONTINUES AT THIS TIME. WILL REDRAW PTT THIS AFTERNOON. NO OTHER NEEDS AT THIS TIME. WILL CONTINUE TO CLOSELY MONITOR.
--- NOTE | 2021-10-01 11:30 | NUR ---
Update from Rn, NG is out. Pt remains on TPN. Feeling better.
--- NOTE | 2021-10-01 12:00 | NUR ---
PATIENTS ASSESSMENT COMPLETED AND REMAINS UNCHAGED FROM PRIOR ASSESSMENT. PATIENT REPOSITION IN THE CHAIR WITH TWO TN ASSIST. PATIENT TOLERATED WELL. PATIENT DENIES ANY OTHER NEEDS AT THIS TIME. WILL CONTINUE TO CLOSELY MONITOR.
--- NOTE | 2021-10-01 14:00 | NUR ---
PTT BACK AND IS WITHIN THE NORMAL RANGE WITH NO TITRATION REQURIED. VERIFIED WITH RITA MILES. PATIENT UP FROM THE CHAIR AND USED CAMMODE AND NOW BACK TO BED. PATIENT TOLERATED WELL. PATIENT NOW RESTING. MEDICATIONS GIVEN. WILL CONTINUE TO CLOSELY MONITOR.
--- NOTE | 2021-10-01 14:51 | NUR ---
DR. ROSARIO IN TO SEE PATIENT. PLAN TO ADVANCE TO SLIGHTLY MORE CLEAR LIQUIDS AND SEE HOW SHE TOLERATES THIS. DISCUSSED WITH MD HOLDING Q WEEKLY VITAMIN K.
--- NOTE | 2021-10-01 16:45 | NUR ---
PATIENT ASSESSMENT REMAINS UNCHANGED FROM PRIOR ASSESSMENTS. PATIENTS TPN GIVEN. PATIENTS BLOOD SUGAR DONE AND INSULIN GIVEN PER ORDERS. PATIENT DENIES ANY OTHER NEEDS AT THIS TIME. WILL CONTINUE TO CLOSELY MONITOR.
--- NOTE | 2021-10-01 17:06 | NUR ---
RITA MILES SPOKE WITH MD ROSARIO AND PER MD ROSARIO DO NOT GIVE VIT. K THAT IS SCHEDULED FOR Tuesday10/05/2021. THIS RN WILL DC MEDICATION.
--- NOTE | 2021-10-01 18:31 | NUR ---
THIS RN IN TO EMPTY PATIENTS BARNETT CATHETER. PATIENT RESTING IN BED AT THIS TIME. CALL LIGHT IS IN REACH. PATIENT DENIES ANY NEEDS. WILL CONTINUE TO CLOSELY MONITOR.
--- NOTE | 2021-10-01 21:15 | NUR ---
PATIENT UP TO THE BATHROOM FOR BM. ESTIMATED MEDIUM BM, PARTIALLY LIQUID AND GREEN. PATIENT AMBULATED INTO THE BATHROOM WITH 1PA. PATIENT MOVES SLOWLY BUT APPEARS STEADY. PATIENT DENIED LIGHTHEADEDNESS. PATIENT RETURNED TO BED. SCHEDULED MEDS PROVIDED. ACCU CHECK AND SSI PER ORDERS. PATIENT DENIES NAUSEA OR PAIN. VS STABLE. FRESH ICE WATER AND ICE CHIPS PROVIDED. IV ABX IN PERIPHERAL IV. HEPARIN AND TPN IN 2 LUMEN PICC. HEPARIN LINE FLUSHED WITH 10 MLS AND RETURNS BLOOD. LUNG SOUNDS ARE CLEAR WITH FINE CRACKLES IN THE BASES. PATIENT USING IS REGULARLY. BARNETT CARE DONE, OUTPUT QS. URINE COLOR IMPROVED. CALL LIGHT IN REACH. LIGHTS DIMMED.
--- NOTE | 2021-10-02 00:15 | NUR ---
PATIENT APPEARS TO BE RESTING. VS STABLE. IV SITES WNL. GOOD URINE OUTPUT. CALL LIGHT IN REACH.
--- NOTE | 2021-10-02 06:00 | NUR ---
LABS DRAWN FROM PICC LINE. MEDS STOPPED FOR >3 MINS, FLUSHED 10 MLS IN PORT THAT HAD HEPARIN INFUSING, REMOVED CLAVE, JOSEPH 6 MLS WASTE AND THEN LAB SAMPLE. NEW CLAVE IN PLACE AND FLUSHED 10 MLS NS. PORT WITH TPN CLAVE CHANGED AND FLUSHED 10 MLS. IV ABX STARTED IN PERIPHERAL SITE. BARNETT EMPTIED. ASSISTED PATIENT TO REPOSITION. DISCUSSED PLAN OF THE DAY TO INCREASE ORAL INTAKE AND AMBULATE TODAY. PATIENT FEELING UP FOR THIS. CALL LIGHT IN REACH.
--- NOTE | 2021-10-02 07:45 | NUR ---
PATIENT SHIFT REPORT RECIEVED FROM SLOT MACHINE MECHANIC RN. PATIENT IS RESTING I NBED. SLOT MACHINE MECHANIC RN TITRATED HEPARIN GTT PER ORDERS AND PER MD RASCH. NO OTHER NEEDS AT THIS TIME. WILL CONTINUE TO CLOSELY MONITOR.
--- NOTE | 2021-10-02 07:45 | NUR ---
RT COLLECTED RAPID COVID 19 SWAB/ FLU SWAB/ AND RSV SWAB WITH NO COMPLICATIONS AT THIS TIME.
--- NOTE | 2021-10-02 08:42 | NUR ---
SBA WITH PATIENT TO BR FOR SMALL BM. PATIENT TOLERATED WELL. PATIENT NOW UP TO CHAIR FOR BREAKFAST, LEGS ELEVATED, BARNETT EMPTIED. VITALS AND I&OS CHARTED. LINENS CHANGED. CALL LIGHT IN EASY REACH
--- NOTE | 2021-10-02 09:30 | NUR ---
PATIENT SHIFT ASSESSMENT COMPLETED. PATIENT IS RESTING IN BED AT THIS TIME. MOBILE SALES CONSULTANT AND STUDENT NURSE RUSSELL IN TO ASSIST PATIENT UP TO THE CAMMODE AND INTO THE CHAIR. PATIENT UPDATED ON PLAN OF CARE. MD CESAR WAS IN TO SEE PATIENT. WILL POSSIBLY TAKE THE BARNETT CATHETER OUT TODAY AND TALK TO MD ROSARIO ABOUT TRANSITIONING PATIENT TO ORAL ANTICOAGULATION TODAY. PATIENT WORKING ON A CLEAR LIQUID TRAY AND HAS BEEN TOELRATING WELL. WILL CONTINUE TO CLOSELY MONITOR.
--- NOTE | 2021-10-02 10:30 | NUR ---
2PA WITH PATIENT FOR WALK IN CCU SALEEM. PATIENT TOLERATED WELL AND WAS QUITE TIRED UPON RETURNING TO HER ROOM. PATIENT NOW UP IN CHAIR FACING WINDOW. BONNIE LIGHT IN EASY REACH
--- NOTE | 2021-10-02 11:30 | NUR ---
PATIENT WALKED THE HALLWAY IN CCU WITH THE LEATHER LACER AND STUDENT NURSE. PATIENT TOLERATED WELL. PATIENT NOW SITTING BACK IN THE CHAIR. PATIENT DENIES ANY OTHER NEEDS AT SI TIME. WILL CONTINUE TO CLOSELY MONITOR.
--- NOTE | 2021-10-02 12:26 | NUR ---
TPN DAY 3 TODAY. CURRENT TPN RX IS PROVIDING AN AVERAGE 1634 CALORIES AND 100 GM PROTEIN PER 24 HOURS. THIS IS PROVIDING 23 BONNIE/KG AND 1.4 GM PROTEIN/KG. SHE IS ALSO ON A CL DIET, BUT SHE DID NOT CONSUME ANY CL'S FOR DINNER LAST NIGHT. INITIALLY I SUGGESTED LIPIDS BE 500 ML BUT PATIENT IS RECEIVING 250 ML (M-W-F). WILL CONTINUE TO MONITOR PATIENT'S INTAKE OF CLEAR LIQUIDS TO MEET HER ESTIMATED CALORIE NEEDS OF [phone] PER DAY. PATIENT IS NOW ON COUMADIN FOR ANTICOAGULATION. WILL PROVIDE DIET EDUCATION UPON DISCHARGE ON DIET WHILE ON COUMADIN IF NEEDED.
--- NOTE | 2021-10-02 12:30 | NUR ---
TASHA DAUGHTER AT THE BEDSIDE. UPDATED ON PATIENTS PLAN OF CARE. ANSWERED ALL QUESTIONS. PATIENTS ASSESSMENT COMPLETED AND REMAINS UNCHANGED. WILL CONTINUE TO CLOSELY MONITOR.
--- NOTE | 2021-10-02 13:50 | NUR ---
spencer briceño gave report to vonda briceño. vonda briceño will resume patient care at this time.
--- NOTE | 2021-10-02 13:55 | NUR ---
THIS RN IN TO CHECK ON PATIENT. PATIENT VISITING WITH HER FAMILY. ALL QUESTIONS ANSWERED. NO OTHER NEEDS AT THSI TIME. UMAIR IN TO DRAW AFTERNOON LABS. WILL CONTINUE TO CLOSELY MONITOR.
--- NOTE | 2021-10-02 14:45 | NUR ---
PATIENTS PTT WITHIN A THERAPUTIC LEVEL. NO TITRATION NEEDED.
--- NOTE | 2021-10-02 14:59 | NUR ---
PATIENT HAS AMBULATED THREE TIMES TODAY IN CCU SALEEM, WITH SBA.
--- NOTE | 2021-10-02 15:01 | NUR ---
PATIENT SITTING UP IN RECLINER, ENJOYS LOOKING OUT THE WINDOW. BARNETT EMPTIED, AND AMBULATED SALEEM.
--- NOTE | 2021-10-02 15:45 | NUR ---
REPORT GIVEN TO COSTA MILES. COSTA WILL RESUME PATIENT CARE AT THSI TIME. ALL QUESTIONS ANSWERED.
--- NOTE | 2021-10-02 16:11 | NUR ---
PT REMAINS UP IN CHAIR AT THIS TIME, TPN INFUSION AT THIS TIME. K/PHOS RIDER COMPLETED AT THIS TIME.
--- NOTE | 2021-10-02 17:15 | NUR ---
Update from Rn. Pt remains on TPN. Starting warfin.
--- NOTE | 2021-10-02 18:04 | NUR ---
PT PASSING GAS, BUT NOT GAS HAD SMALL BM GREEN IN COLOR IN CHAIR. PT AMBULATED TO BATHROOM HAD LARGE GREEN IN COLOR BM LIQUID. ALSO REMOVED BARNETT CATHETER AT THIS TIME. TAMEKA-CARE GIVEN AT THIS TIME. FRESH PATIENT GROWN PLACED. PT AMBULATED BACK TO THE THE CHAIR, FAMILY AT BEDSIDE AND PT GIVEN CLEAR LIQUIDS TRAY. PT ALSO PLACED IN AN ATTENDS.
--- NOTE | 2021-10-02 19:00 | NUR ---
PT HAS BEEN UP IN THE CHAIR MOST OF THE SHIFT, HAS AMBULATED IN THE SALEEM TODAY. PT FAMILY HAS BEEN INTO VISIT. HEPRIN DRIP INFUSING 900UNITS=18ML/HS, TPN 84ML/HR AND LIPIDS 20.8 ML/HR INTO HER PICC LINE IN HER UPPER RIGHT ARM. ALSO HAD BLOOD RETURN WHEN FLUSHING BETWEEN TPN BAGS. PT HAS TOLERATED PO FLUIDS SO FAR THIS SHIFT. SHE IS HAVING GREEN IN COLOR BM LIQUID. FOLY CATHETER DC'D AT 18:00 AND HAS NOT VOID OF THIS TIME.
--- NOTE | 2021-10-02 19:30 | NUR ---
REPORT RECEIVED FROM KECIA MILES.
--- NOTE | 2021-10-02 19:50 | NUR ---
PT ASSISTED UP TO BATHROOM WITH RN TO TRY TO VOID.
--- NOTE | 2021-10-02 20:12 | NUR ---
PT ASSISTED BACK TO BED, WALKER GIVEN FOR AMBULATION. STEADY WITH WALKER. ASSESMENT DONE. LUNGS CLEAR, DENIES ABDOMINAL PAIN. TPN AND LIPIDS INFUSING THROUGH PICC. PT ALERT AND ORIENTED. ASSISTED WITH BRUSHING TEETH AND HS CARE. PT STATES SHE VOIDED A GOOD AMOUNT BUT THERE WAS NOT A HAT IN THE TOILET, ALSO HAD LOOSE STOOL. CALL LIGHT IN REACH.
--- NOTE | 2021-10-02 22:30 | NUR ---
PT CALLED TO USE BATHROOM. UP TO VOID 450 ML THEN BACK TO BED. ASSESSMENT DONE, NO CHANGES FROM PREVIOUS ASSESSMENT.
--- NOTE | 2021-10-03 01:40 | NUR ---
PT CALLED TO USE BATHROOM, UP TO VOID AND THEN BACK TO BED WITH NO COMPLAINTS. CALL LIGHT IN REACH.
--- NOTE | 2021-10-03 02:44 | NUR ---
IV FOR IV PUMP ALARMING, PT AWAKENS BRIEFLY, DENIES NEEDS AND THEN GOES BACK TO SLEEP.
--- NOTE | 2021-10-03 04:45 | NUR ---
PT UP TO BR TO VOID AND HAVE LOOSE STOOL THEN BACK TO BED. ASSESSMENT DONE. DENIES PAIN AT THIS TIME.
--- NOTE | 2021-10-03 06:20 | NUR ---
IN TO HANG FLAGYL, PT DENIES NEEDS AT THIS TIME.
--- NOTE | 2021-10-03 06:34 | NUR ---
PLACED NEW IV SITE, 22G RIGHT HAND, UNABLE TO USE PT'S LEFT ARM DUE TO CANCER HX. REMOVED IV TO RGHT FOREARM THAT HAS BEEN PAINFUL TO PT WHEN FLUSHED, TIP INTACT GUAZE AND TAPE APPLIED
--- NOTE | 2021-10-03 07:45 | NUR ---
PATIENT SHIFT REPORT RECIEVED FROM SHIP LINER RN. PATIENT RESTING IN BED AT THIS TIME. PATIENT REMAINS ON HEPARIN GTT. PER REPORT NO CHANGES. WILL CONTINUE TO CLOSELY MONITOR.
--- NOTE | 2021-10-03 08:45 | NUR ---
PATIENTS PTT IS 87.6 AND IN A THERAPUTIC RANGE. NO CHANGES. VERIFIED WITH 2ND RN DEMETRA.
--- NOTE | 2021-10-03 08:47 | NUR ---
PT ONE PERSON STANDBY ASSIST WITH WALKER TO THE BATHROOM. PT VOIDED AND HAD LIQUID BM. PT COMPLETED OWN TAMEKA CARE, AND NEW ATTENDS PROVIDED. PT NOW IN CHAIR, FACING WINDOW. FLUIDS CONTINUE TO INFUSE. PT'S DAUGHTER IN ROOM. CALL LIGHT WITHIN REACH. NO OTHER REQUESTS AT THIS TIME.
--- NOTE | 2021-10-03 09:30 | NUR ---
PATIENT SHIFT ASSESSMENT COMPLETED. PATIENT RESTING IN THE CHAIR NOW AT THIS TIME. PATIENT WAS UP TO THE BATHROOM WITH DREW MILES. PATIENT TOLERATED WELL. PATIENTS DAUGHTER IS AT THE BEDSIDE AT UPDATED ON PLAN OF CARE. PHARMACY WILL BE OVER TO DO SOME EDUCATION ON WARFARIN. PATIENT WORKING ON A CLEAR LIQUID TRAY. WILL CONTINUE TO CLOSELY MONITOR. NO OTHER NEEDS AT THIS TIME.
--- NOTE | 2021-10-03 11:30 | NUR ---
PATIENT ASSISTED UP TO THE BATHROOM PATIENT WALKS STEADILY WITH A WALKER. HEPARIN GTT REMAINS UNCHANGED. TPN INFUSING. WILL CONTINUE TO CLOSELY MONITOR.
--- NOTE | 2021-10-03 13:00 | NUR ---
PATIENT ADVCANCED TO A FULL LIQUID DIET. TRAY PROVIDED. PATIENTS ASSESSMENT REMAINS UNCHANGED. PATIENT CONTINUES TO DENY ANY ABD PAIN. MEDICATIONS GIVEN. PATIENT DENIES ANY OTHER NEEDS AT THIS TIME. CALL LIGHT IN REACH. WILL CONTINUE TO CLOSELY MONITOR.
--- NOTE | 2021-10-03 15:00 | NUR ---
PATIENT UP TO THE BATHROOM WITH STAND-BY ASSIST. PATIENT BACK TO THE CHAIR. WARM BLANKET PROVIDED. PATIENT DENIES ANY NEEDS AT THIS TIME. CALL LIGHT IN REACH. WILL CONTINUE TO CLOSELY MONITOR.
--- NOTE | 2021-10-03 16:01 | NUR ---
PATIENT RESTING IN HER CHAIR AT THIS TIME. PATIENT RESTING IN THE CHAIR AT THIS TIME. PATIENT WAS UP WORKING WITH PHYSICAL THERAPY AND TOELRATED WELL. PATIENT DENIES ANY OTHER NEEDS AT THIS TIME. WILL CONTINUE TO CLOSELY MONITOR.
--- NOTE | 2021-10-03 16:50 | NUR ---
THIS RN IN TO GIVE EVENING MEDICATION. PATIENT TOLERATED WELL. WARM BLANKET PROVIDED. PATIENTS BELONGINGS ARE WITHIN REACH. PATIENT HAS FAMILY VISITING. NO OTHER CHANGES. PATIENTS ASSESSMENT REMAINS UNCHANGED FROM PRIOR ASSESSMENTS. CALL LIGHT WITHIN REACH. WILL CONTINUE TO CLSOELY MONITOR.
--- NOTE | 2021-10-03 18:45 | NUR ---
THIS RN IN TO CHECK ON PATIENT. PATIENT RESTING IN THE CHAIR AT THIS TIME. PATIENT WAS UP WITH DREW MILES TO THE BATHROOM. PATIENT TOLERATED WELL. PATIENT WORKING ON HER FULL LIQUID TRAY. NO CHANGES IN ABD. PATIENT TOELRATING FOOD WELL. WILL CONTINUE TO CLOSELY MONITOR.
--- NOTE | 2021-10-03 19:30 | NUR ---
REPORT RECEIVED FORM JOSEPH MILES, PT HAS JUST GOTTEN BACK IN BED FROM BATHROOM AND IS RESTING IN BED WITH EYES CLOSED.
--- NOTE | 2021-10-03 19:50 | NUR ---
IN TO DO ASSESSMENT AND HS MEDS AND HS CARE. PT DENIES PAIN AT THIS TIME, ALERT AND ORIENTED, REPORTS BEING TIRED SHE DID NOT SLEEP MUCH LAST NIGHT AND WANTS TO GO TO SLEEP SOON. LUNGS CLEAR, DENIES ABDOMINAL PAIN. HEPARIN GTT INFUSING AT 900UNITS/HR, TPN INFUSING AND IV ANTIBIOTICS STARTED. PT HAS CALL LIGHT IN REACH AND WILL CALL WITH NEEDS.
--- NOTE | 2021-10-03 21:30 | NUR ---
PT RESTING WITH EYES CLOSED, RESP EVEN AND UNLABORED, HR 80'S AND RR 18, SPO2 97% ON ROOM AIR.
--- NOTE | 2021-10-03 23:05 | NUR ---
PT CALLS TO USE BATHROOM, UP TO VOID WITH SBA AND FWW, STEADY ON FEET, BACK TO BED. PT IS SLIGHTLY SOB WITH ACTIVITY, RECOVERS QUICKLY. ASSESSMENT DONE AND PT WANTING TO TRY TO SLEEP SOME MORE, STATES SHE WAS ABLE TO FALL ASLEEP FOR A WHILE.
--- NOTE | 2021-10-04 01:48 | NUR ---
IN TO CHECK ON PT, SHE IS LYING AWAKE IN BED, STATES SHE HAS NOT BEEN ABLE TO FALL ASLEEP, ASSISTED WITH REPOSITIONING BACK IN BED AND SHE THINKS THIS WILL HELP, CALL LIGHT IN REACH.
--- NOTE | 2021-10-04 02:59 | NUR ---
PT RESTING WITH EYES CLOSED, RESP EVEN UNLABORED, SPO2 95% AND HR 80'S.
--- NOTE | 2021-10-04 03:50 | NUR ---
PT CALLS FOR ASSISTANCE GETTING TO BATHROOM, IN TO BR TO VOID AND HAS LOOSE STOOL, BACK TO BED, SBA WITH FWW. PT STATES HER COCCYX IS HURTING, FLOATED AND PILLOWS AND SHE STATES THAT IS MUCH BETTER, CALL LIGHT IN REACH, WILL TRY TO GET BACK TO SLEEP. CONT TO DENY ABDOMINAL PAIN.
--- NOTE | 2021-10-04 06:10 | NUR ---
WILL HOLD OFF ON LABS PT LOOKS TO BE RESTFUL AND HAS BEEN HAVING TROUBLE SLEEPING. HEPARIN DRIP CONTINUES TO INFUSE AT 900UNITS/HR AND TPN INFUSING WELL.
--- NOTE | 2021-10-04 08:26 | NUR ---
IN PATIENT'S ROOM FOR ASSESSMENT, PLUG DRILL OPERATOR, AND TO HELP PATIENT UP TO BATHROOM AND THEN INTO CHAIR. PT ABLE TO GET OUT OF BED WITHOUT ANY ASSITANCE, AND RATES HER PAIN A 3/10. PT VOIDS 500 ML AND HAS A GREEN LIQUID LIKE BM IN TOILET. PT INTO CHAIR NOW AND AM MEDS GIVEN. WAITING ON BREAKFAST STILL. 2-3+ EDEMA IN LOWER LEGS AND THE SKIN OVER LEGS FEEL VERY TAUT. CRACKLES ALSO NOTED BILATERAL MID TO LOWER LUNG BASES, R >L. SP02 IS 95% ON ROOM AIR. PT STATES SHE IS SLIGHLTLY SHORT OF BREATH WITH WALKING BUT DOES FEEL LIKE SHE CAN TAKE A FULL BREATH. TPN CONTINUES AT 84 ML/HR. AM LABS DRAWN FROM PICC AFTER HEPARIN WAS PLACED ON HOLD FOR 5 MINUTES. PENDING LAB VALUES THIS AM. WILL CONTINUE TO MONITOR CLOSELY.
--- NOTE | 2021-10-04 09:19 | NUR ---
DR. CESAR IN ROOM THIS AM AND PLAN OF CARE DISCUSSED WITH PATIENT AND THIS RN. PT WILL RECEIVE A 1 TIME DOSE OF IV LASIX FOR HER INCREASED SWELLING IN LEGS AND CRACKLES IN LUNGS. APTT IS 89 AND WILL EVAL HEPARIN PROTOCOL. INR IS 1.34 THIS AM. CONTINUE TO MONITOR.
--- NOTE | 2021-10-04 10:04 | NUR ---
APTT IS 89.1 THEREFORE HEPARIN GTT REMAINS AT 900 UNITS/HR. TPN CONTINUES AT 84 ML/HR.
--- NOTE | 2021-10-04 10:52 | NUR ---
ASSISTED PT TO RESTROOM. PT AMBULATED WELL WITH WALKER ASSISTANCE. CHANGED PT DEPENDS. RECORDED 1 INCONTINENCE IN DEPENDS WELL 400 ML VOIDED INTO HAT. PT IS NOW RESTING IN CHAIR. REQUESTED WIPES TO CLEAN FACE, NOW AT BEDSIDE. CALL LIGHT IS WITHIN REACH, NO FURTHER NEEDS AT THIS TIME.
--- NOTE | 2021-10-04 11:43 | NUR ---
PATIENT UP TO BATHROOM AGAIN TO VOID AND HAD ANOTHER LIQUID GREEN BM. PT ASKING TO GO FOR A WALK AND HELPED TO AMBULATE IN CCU HALLWAY. PT TOLERATED WELL. PT'S ASSESSMENT SIMILAR TO THIS AM, BUT LESS CRACKLES IN LUNGS AFTER LASIX WAS GIVEN. PT READY FOR HER LUNCH AND THEN WANTING TO TAKE A SHOWER AFTER LUNCH. PT REMAINS IN GOOD SPIRITS, AND UP IN CHAIR SITTING CLOSE TO WINDOW. CONTINUE TO MONITOR. AM LABS ORDERED PER TPN ORDER SHEETS.
--- NOTE | 2021-10-04 13:39 | NUR ---
PHYS THERAPY IN TO SEE PATIENT. PATIENT UP TO HALLWAY AND AMBULATE AND TOLERATING WELL.
--- NOTE | 2021-10-04 15:10 | NUR ---
DR. ROSARIO IN TO SEE PATIENT AND PLAN OF CARE DISCUSSED. PT WILL RECEIVE ANOTHER 5 MG DOSE OF COUMADIN TODAY AND REMAIN ON HEPARIN GTT AT 900 UNITS/HR. NEXT APTT IS TOMORROW AM AND INR LEVEL TOMORROW. PT UP TO SHOWER AND HELPED WITH THIS. PT TOLERATED THIS WELL. PT REMAINS OFF COUNSELING SPECIALIST AFTER REVIEWING WITH BOTH DR. CESAR AND DR. ROSARIO THAT THIS IS OKAY. PT HAS BEEN IN A NORMAL SINUS RHYTHM SINCE ADMISSION. PT NOW BACK IN CHAIR AND WATCHING TV, WAITING FOR HER FULL LIQUID DINNER. CONTINUE TO MONITOR. CALL LIGHT IN CHAIR WITH PATIENT.
--- NOTE | 2021-10-04 19:35 | NUR ---
IN TO CHECK ON PT, SHE STATES SHE IS GETTING SLEEPY, REPORTS ALL HER ACTIVITY THAT SHE DID WITH PHYSICAL THERAPY TODAY, IS FEELING POSITIVE ABOUT IT BUT TIRED. ASSISTED WITH PUTTING IN SOME EYE DROPS. FRESH EYE DROPS GIVEN PER REQUEST.
--- NOTE | 2021-10-04 20:20 | NUR ---
IN TO DO ASSESSMENT AND HS MEDS. PT DENIES ABD PAIN OR FEELING SOB. LUNGS HAVE CRACKLES IN BASES. PT DOES HAVE MORE EDEMA TONIGHT THAN SHE DID LAST NIGHT IN LEGS BILAT. SHE IS MOVING BETTER TONIGHT AND ABLE TO DO MORE ON HER OWN. REMAINS ALERT AND ORIENTED, DENIES NEEDS OTHER THAN WANTING TO SLEEP.
--- NOTE | 2021-10-04 21:24 | NUR ---
PT UP TO BR WITH ASSIST AND FWW, BACK TO BED WITH CALL LIGHT IN HAND.
--- NOTE | 2021-10-05 00:47 | NUR ---
PT CALLS TO USE BATHROOM, UP TO VOID AND LOOSE STOOL, BACK TO BED, SBA/FWW. NO C/O AT THIS TIME, STATES SHE HAS BEEN ABLE TO SLEEP WELL THE LAST COUPLE OF HOURS. ASSESSMENT DONE, BACK TO BED. PT POSITIONED ONTO PILLOWS UNDER COCCYX. CALL IN HAND.
--- NOTE | 2021-10-05 02:31 | NUR ---
PT RESTING WITH EYES CLOSED, RESP EVEN AND UNLABORED, SPO2 93% ON ROOM AIR.
--- NOTE | 2021-10-05 05:11 | NUR ---
CALLS FOR HELP UP TO BR, UP TO BR WITH SBA/FWW. SLIGHTLY SOB WITH WALKING. STARTED TO GO OUT FOR A WALK BUT THEN LAB CAME INTO ROOM SO SHE GOT BACK INTO BED.
--- NOTE | 2021-10-05 07:43 | NUR ---
APTT 133 THIS AM. HEPARIN GTT PLACED ON HOLD AT 0738 AND WILL BE ON HOLD FOR 30 MINUTES, THEN RATE WILL DECREASE TO 800 UNITS/HR. PT NOW UP TO BATHROOM AND WILL GET TO CHAIR NEXT FOR BREAKFAST. PT REPORTS SHE SLEPT FAIR IN THE NIGHT. PT MOVING WELL WIHT FWW AND A SBA. TPN CONTINUES AT 84 ML/HR. ASSESSMENT TO BE COMPLETED. NEW ATTENDS PROVIDED.
--- NOTE | 2021-10-05 08:15 | NUR ---
HEPARIN GTT RESTARTED AT 800 UNITS/HR AFTER HOLDING FOR 30 MINUTES. NEXT APTT TO BE DRAWN AT 1400 AND ORDER PLACED PER PROTCOL. PT VISITING WITH HER DAUGHTER AT THIS TIME. PT EATING HER FULL LIQUID DIET AND TOLERATING WELL. STANDING WEIGHT 79.7 KG, (175 LBs), WHICH IS 28 LBS UP FROM ADMIT WEIGHT. EDEMA IN LEGS IS STILL 3+, WITH EDEMA EXTENDING UP INTO UPPER THIGHS. DISTENDING IN ABDOMEN IS SIMILAR TO YESTERDAY, AND PT STATES HER PAIN IS WELL CONTROLLED. PLAN OF CARE DISCUSSED WITH PATIENT. CONTINUE TO MONITOR.
--- NOTE | 2021-10-05 08:15 | NUR ---
Spoke with pt and her daughter. Pt is up in a chair. Feeling well. Daughter is working on getting a walk in shower in the home. Pt would like a walker, I will notify the Dr. Discussed 1/2 bedrails to assist pt to sit up. Pt does not feel she needs. Daughter is encouraging pt, but pt does not want. They deny other needs. Pt is telling daughter education was provided for warfarin and what foods she will need to change. They deny other needs. Will get walke ordered today.
--- NOTE | 2021-10-05 09:12 | NUR ---
Contacted [facility]. They will not be here today. Let them know I will check with the DrAna if pt is discharging today.
--- NOTE | 2021-10-05 09:21 | NUR ---
DR. CESAR IN ROOM TO SEE PATIENT. PLAN IS FOR PATIENT TO TRANSFER TO THE MEDICAL FLOOR TODAY. PT TO GET MORE LASIX TODAY WELL. PT'S DAUGHTER IN ROOM AND PLAN OF CARE DISCUSSED WITH HER WELL. ALL QUESTIONS ANSWERED BEST POSSIBLE.
--- NOTE | 2021-10-05 11:21 | NUR ---
PHYSICAL THERAPIST IN ROOM TO WORK WITH PT. PT ABLE TO DO LAPS AROUND UNIT WITH WALKER. STATES THE "EXTRA FLUID" ON HER LEGS IS MAKING IT MORE DIFFICULT TO DO ALL THE THERAPY SHE WOULD LIKE TO BE DOING. PT STEADY ON FEET TO BATHROOM WITH LARGE, PALE YELLOW VOID, SMALL BM. PT NOW SITTING UP IN CHAIR, WARM BLANKET PROVIDED.
--- NOTE | 2021-10-05 13:18 | NUR ---
DR. ROSARIO IN TO SEE PATIENT AND PLAN OF CARE DISCUSSED. PT WILL REMAIN ON LOW FIBER DIET AND MONITOR INR LEVELS CLOSELY, ALONG WITH APTT. APTT WILL BE DRAWN AT 1400 AND HEPARIN CHANGED ACCORDINGLY.
--- NOTE | 2021-10-05 13:42 | NUR ---
REPORT FROM CCU NURSE RITA
--- NOTE | 2021-10-05 14:04 | NUR ---
PATIENT UP TO BATHROOM AGAIN TO VOID AND THEN HELPED TO WALK TO MED/SURG ROOM 111. PATIENT TOLERATED THIS WALK WELL. ALL PERSONAL BELONGINGS TAKEN WITH PATIENT. APTT TO BE DRAWN AT 1400 AND HEPARIN TITRATED IF NEEDED. REPORT GIVEN TO DASHA ON MED/SURG.
--- NOTE | 2021-10-05 14:10 | NUR ---
PATIENT FROM CCU TO ROOM 111, UP IN CHAIR. PATIENT UP IN CHAIR. TPN INFUSING AT THIS TIME.
--- NOTE | 2021-10-05 16:49 | NUR ---
face sheet, H&p, rx, progress note faxed to [facility] as requested by pt.
--- NOTE | 2021-10-05 18:05 | NUR ---
Transfer from CCU. Heparin at 16 ml/hr. Rate unchanged. 14:00 aPtt was 83.5. Next ApTT at 6am. TPN and lipids infusing. Pt liked sitting in recliner. R PICC line and R lower FA IV patent. ACHS.
--- NOTE | 2021-10-05 18:21 | NUR ---
PATIENT SITTING UP IN CHAIR, SISTER IN ROOM. VITALS AND I&O'S CHARTED. CALL LIGHT IN REACH. NO FURTHER NEEDS AT THIS TIME.
--- NOTE | 2021-10-05 19:15 | NUR ---
REPORT RECEIVED FROM DAY SHIFT RN. PT SITTING IN RECLINER ALERT AND ORIENTED. DENIES NEEDS AT THIS TIME. WHITE BOARD UPDATED. CALL LIGHT IN REACH.
--- NOTE | 2021-10-05 20:59 | NUR ---
PT SBA WITH FWW TO BR TO VOID AND HAVE SMALL LOOSE BM. AT SINK TO WASH HANDS. BACK TO BED, REYNA WELL. PT REPORTS DISCOMFORT IN BILAT FEET DUE TO EDEMA. EVENING ASSESSMENT COMPLETE. PT DENIES PAIN OR NAUSEA. ABD FIRM AND DISTENDED. BOWEL TONES ACTIVE. TPN/LIPIDS INFUSING WNL. HEPARIN DRIP INFUSING PER ORDER. PT REQUESTING PRN FOR SLEEP. MD NOTIFIED AND WILL ADD ORDERS. SCD'S IN PLACE. PT DENIES QUESTIONS OR CONCERNS. CALL LIGHT IN REACH.
--- NOTE | 2021-10-05 21:40 | NUR ---
PT AWAKE IN BED WATCHING TV. IV ABX INFUSING WNL. PRN FOR SLEEP ADMIN PER EMAR. PT REPORTS SHE IS COMFORTABLE. NO NEEDS AT THIS TIME.
--- NOTE | 2021-10-06 00:21 | NUR ---
CALL LIGHT ANSWERED. PT UP TO BR TO VOID 400 ML CONCENTRATED URINE AND HAVE SMALL SEMI FORMED BM. PT ABLE TO DO OWN TAMEKA CARE. AT SINK TO WASH HANDS. BACK TO BED, REYNA WELL. GAIT STEADY. PT DENIES PAIN OR NAUSEA. SCD'S IN PLACE. NO FURTHER NEEDS.
--- NOTE | 2021-10-06 02:37 | NUR ---
PT COMPLAINED HARD TO BREATH. INTO ROOM, WITH OTHER SILK SCREEN PRINTER MACHINE'S, RT. PT RUBBING UNDER HER LEFT BREAST, ALONG RIB CAGE AREA. NO SOB NOTED, RA SATS 96. ASK IF THIS WAS PRESSURE PAIN, NO THOUGHT CRAMP LIKE PAIN. SAYS NOT A NEW PAIN, SOMETIMES GOES ACROSS TOP STOMACH TO OTHER SIDE RIB CAGE. THOUGHT GETTING UP WOULD HELP. UP TO RECLINER, FEET ELEVATED, WARM BLANKET PROVIDED, WARM PACK UNDER LEFT RIB/BREAST AREA. PRIMARY RN NOTIFIED.
--- NOTE | 2021-10-06 03:16 | NUR ---
PT SITTING IN RECLINER. DENIES SOB AT THIS TIME. CRACKLES AUSCULTATED IN BILAT LUNGS. SpO2 96% ON RA. HR 70'S. RESPIRATIONS EVEN. PT REPORTS PAIN UNDER LEFT BREAST. FIRM LUMP UNDER BREAST PALPATED. PT REPORTS WARM COMPRESS IMPROVING PAIN. WHEN ASKED PT BELIEVES MD AWARE OF AREA CAUSING PAIN. FRESH WATER PROVIDED. PT AGREES SHE IS COMFORTABLE AT THIS TIME. NO FURTHER NEEDS. CALL LIGHT IN REACH.
--- NOTE | 2021-10-06 04:12 | NUR ---
CALL LIGHT ANSWERED. PT UP TO BR WITH SBA AND FWW WITH RESCUE BOAT OPERATOR. BACK TO RECLINER. BLE ELEVATED. PT DENIES SOB. REPORTS CONTINUED DISCOMFORT UNDER LEFT BREAST. REFUSES WHEN OFFERED PRN FOR PAIN. WARM COMPRESS IN PLACE, PT REPORTS RELIEF. LIPID INFUSION COMPLETE. TPN AND HEPARIN INFUSING WNL. NO FURTHER NEEDS. CALL LIGHT IN REACH.
--- NOTE | 2021-10-06 06:04 | NUR ---
PT REMAINS IN RECLINER WITH FEET ELEVATED. VS AND I&O COMPLETE. PT DENIES PAIN OR NAUSEA. LAB IN ROOM FOR MORNING DRAW. CALL LIGHT IN REACH.
--- NOTE | 2021-10-06 09:59 | NUR ---
PATIENT UP IN CHAIR AT THIS TIME. VITALS AND I&O'S CHARTED. FRESH WATER GIVEN. CALL LIGHT IN REACH. NO FURTHER NEEDS AT THIS TIME.
--- NOTE | 2021-10-06 11:00 | NUR ---
Spoke with pt, walker arrived. Cancelled mamagram as requested. Pt plans on dc to home with daughter when cleared medically.
--- NOTE | 2021-10-06 11:30 | NUR ---
Pt denies needs. States she is tired and did not sleep well. Will ask the nurses to put the "sleeping" sign on her door after lunch. Let her know cancelled her mamogram as requested. Ziyad was delivered today from [facility].
--- NOTE | 2021-10-06 13:59 | NUR ---
PATIENT IN CHAIR WATCHING TV. VITALS AND I&O'S CHARTED. CALL LIGHT IN REACH. NO FURTHER NEEDS AT THIS TIME.
--- NOTE | 2021-10-06 14:56 | NUR ---
PATIENT IS UP AMBULATING WITH PHYSICAL THERAPY IN HALLWAY.
--- NOTE | 2021-10-06 17:27 | NUR ---
Pt's BGs were elevated today (dinner BG was 311). Morning assessment revealed b/l lower lungs crackles and persistent edema (especially in b/l lower extremities). Pt received one time dose of Lasix IV (20mg). TPN is to be tapered off. New bag was started at 4:30 pm at a new rate of 42 ml/hr. It is to be stopped at 4:30 am. Pt's appetite has been good. Allevyn applied to coccyx since Pt c/o sore bottom. New cushion applied to recliner. pTT was 107.2 in am. No rate change. Next pTT tomorrow morning.
--- NOTE | 2021-10-06 18:38 | NUR ---
PATIENT SITTING IN CHAIR WATCHING TV. VITALS AND I&O'S CHARTED. FRESH ICE CHIPS GIVEN. CALL LIGHT IN REACH. NO FURTHER NEEDS AT THIS TIME.
--- NOTE | 2021-10-06 19:40 | NUR ---
REPORT RECEIVED FROM DAY SHIFT RN. PT SITTING IN RECLINER RESTING WITH EYES CLOSED. RESPIRATIONS EVEN. TPN AND HEPARIN INFUSING PER ORDER. WHITE BOARD UPDATED. CALL LIGHT IN REACH.
--- NOTE | 2021-10-06 21:30 | NUR ---
SBA TO BR TO VOID 300 ML YELLOW URINE. GAIT STEADY. PT ABLE TO DO OWN TAMEKA CARE. ALLEVYN PLACED TO COCCYX AREA DUE TO PT REPORT BEING PAINFUL. SKIN INTACT. NO REDNESS NOTED. BACK TO BED, REYNA WELL. EVENING ASSESSMENT COMPLETE. SCHEDULED MEDS ADMIN PER EMAR. PT DENIES NAUSEA. PRN FOR COCCYX PAIN AND SLEEP ADMIN PER EMAR. EDEMA IN UPPER AND LOWER EXTREMITIES NOTED. FINE CRACKLES HEARD IN BILAT LOWER LUNG SINHA. RA. SpO2 97%. PT DENIES SOB. HEPARIN INFUSING AT 16ML/HR. TPN INFUSING PER ORDER. PICC LINE IN LEFT UPPER ARM WNL. IV ABX INFUSING WNL. ABD SOFT WITH MILD DISTENTION. BOWEL TONES ACTIVE. PT REPORTS FLATUS. ASSISTED PT TO REPOSITION TO LEFT SIDE OFF COCCYX WITH PILLOWS. PT DENIES QUESTIONS OR CONCERNS. CALL LIGHT IN REACH.
--- NOTE | 2021-10-07 00:14 | NUR ---
PT RESTING IN BED WITH EYES CLOSED. RESPIRATIONS EVEN. CALL LIGHT IN REACH.
--- NOTE | 2021-10-07 01:57 | NUR ---
PATIENT IS BACK IN BED FROM BATHROOM. VOIDED 300ML. PATIENT IS LAYING ON HER RIGHT SIDE WITH PILLOW BEHIND. CALL LIGHT IN REACH. NO FURTHER NEEDS AT THIS TIME.
--- NOTE | 2021-10-07 03:18 | NUR ---
CALL LIGHT ANSWERED. IN TO ASSIST PT TO REPOSITION TO LEFT SIDE WITH PILLOWS. PT REPORTS SHE IS RESTING WELL. ASSESSMENT COMPLETE. DENIES NEEDS. CALL LIGHT IN REACH.
--- NOTE | 2021-10-07 04:58 | NUR ---
TPN INFUSION DC'D PER ORDER. PT RESTING ON RIGHT SIDE. RESPIRATIONS EVEN. HEPARIN DRIP INFUSING WNL. CALL LIGHT IN REACH.
--- NOTE | 2021-10-07 05:46 | NUR ---
PATIENT WENT TO THE BATHROOM. SBA. PATIENT IS BACK IN BED. V/S AND I&O'S TAKEN AND CHARTED. NO OTHER NEEDS AT THIS TIME. CALL LIGHT WITHIN REACH.
--- NOTE | 2021-10-07 06:26 | NUR ---
IV ABX INFUSING WNL. PT DENIES PAIN OR NAUSEA. MORNING LABS DRAWN PER PROTOCOL. ASSISTED PT TO REPOSITION TO RIGHT SIDE WITH PILLOWS. NO FURTHER NEEDS. CALL LIGHT IN REACH.
--- NOTE | 2021-10-07 08:34 | NUR ---
sawt is up in chair for meal. call light within reach no further tasks at this time
--- NOTE | 2021-10-07 09:34 | NUR ---
DOMONIQUE IS UP IN CHAIR. I&O AND VITALS CHARTED. CALL LIGHT WITHIN REACH. NO FURTHER TASKS AT THIS TIME
--- NOTE | 2021-10-07 10:30 | NUR ---
PATIENT SITTING IN RECLINER LOOKING OUT THE WINDOW. I GAVE HER A HANDOUT ON DIET WHILE TAKING COUMADIN/WARFARIN. SHE DOESN'T EAT THE HIGH VITAMIN K VEGGIES REGULARLY, THOUGH HER DAUGHTER DOES SPRINKLE CILANTRO OR PARSLEY ON SOME MEALS. THE PARSLEY OR CILANTRO AREN'T A PROBLEM UNTIL SHE EATS 1/4 CUP OR MORE AT A SITTING. PATIENT DOES LIKE BROCCOLI AND JORGE LETTUCE SALADS. I EXPLAINED THAT IT'S BEST TO HAVE ONLY ONE SERVING OF ONE OF THOSE PER DAY INDICATED ON THE HANDOUT. SHE MENTIONED SHE WAS TAKING A MVI/MIN SUPPLEMENT FOR WOMEN OVER 50. LONG SHE WAS TAKING IT REGULARLY SHE CAN CONTINUE TO TAKE IT, BUT I REMINDED HER NOT TO START TAKING A NEW OR DIFFERENT MVI/MIN SUPPLEMENT THAT CONTAINS VITAMIN K. WILL PROVIDE ANY OTHER EDUCATION DEPENDING ON DIET ORDER AT DISCHARGE.
--- NOTE | 2021-10-07 11:00 | NUR ---
Spoke with pt and her daughter, Ronit. Pt states she spoke with Dr. Esposito and she will be here 1-2 more days. She denies need. Daughter is working on replacing pts bathroom to be ada accessable.
--- NOTE | 2021-10-07 11:10 | NUR ---
During shift handoff Pt was sleeping in bed. Turned to R side. Around 8 am Pt requested to sit in a recliner to get ready for breakfast. She stated she slept pretty well and felt rested. TPNs discontinued. BG was 91 this am. R wrist IV discontinued since it was sluggish and burning. Heparin at 16 ml/hr. pTT was 73.5. No change in imfusion rate. Next ptt tomorrow morning. INR was 2.09. Pt was ordered one time dose of lasix IV (20 mg). Overall edema is slowly decreasing. Crackles at b/l lower lungs persist. Pt did report breathing better after dose of Lasix.
--- NOTE | 2021-10-07 11:17 | NUR ---
PATIENT UP TO AMBULATE IN HALLWAY WITH OT, SBA WITH FWW.
--- NOTE | 2021-10-07 11:40 | CONS ---
[facility] [address], [place] [address] Signed DATE OF CONSULTATION: 09/24/2021 REQUESTING PHYSICIAN: Dr. Clint MD PROBLEM: Portal vein and mesenteric thrombosis. HISTORY OF PRESENT ILLNESS: This 71-year-old woman is known to me from the past. She underwent a lumpectomy with sentinel lymph node biopsy and radiation therapy for breast cancer in 2019, this was in the left upper outer aspect. Her breast cancer was ER/MD positive, and there was no evidence of metastatic disease to the lymph nodes. The patient is admitted at this time in the intensive care unit under the direction of Dr. Sampson. She presented to the emergency room yesterday, September 23, 2021, with diffuse abdominal pain and evaluated by Dr. Michaels. Her laboratory studies showed an elevated white count 12.6 with hematocrit of 44.1, platelets 136,000. A CT scan showed thickening of small-bowel, particularly in the ileum and portion of the right colon. A CT angiogram showed no evidence of arterial insufficiency or embolism. She was considered to have possible enteritis either infectious or inflammatory and consideration for ischemic causes was made. She was considered to have encephalopathy as well, related to acute illness with know autoimmune hepatitis and portal hypertension. On the basis of those findings, she was admitted rather by Dr. Sampson at approximately 11:30 p.m. As relates to her known autoimmune hepatitis, she is currently on azathioprine and prednisone. She is said to have had cirrhosis of the liver. The CT scan findings showed distal small-bowel inflammation and leukocytosis with an elevated ammonia level of 70. Lab studies were notable for creatinine of 1.16. Liver enzymes, were normal. Glucose of 147. White count of 12.6, hematocrit 44.1, platelets 136,000. Her serum ammonia was 70 (normal to 32). Lactic acid 1.8. She was COVID negative. During the course of the day today, she was noted to have increasing abdominal pain and on that basis, a CT scan was repeated approximately 03:45 p.m. today. Unlike the CT angiogram ( which she initially underwent as ordered by Dr Deal, emergency room doctor from yesterday) the conventional abdominal ct scan now reveals significant findings of mesenteric thrombosis including the main portal vein, the left and right branches of the portal vein, and proximal portion of the splenic vein as well as superior and inferior mesenteric veins and multiple distal venous branches corresponding to the right lower abdomen. The gallbladder showed multiple calcified gallstones. There is no ureteral or renal abnormality. The colon Electronically Signed By: DUC ROSARIO MD 10/07/21 1140 PATIENT NAME: CARMELO WHIPPLE CONSULTATION DATE OF : 48 REPORT #: [id number] PHYSICIAN: DUC ROSARIO MD PCP: MARIANA OLEA MD REPORT IS CONFIDENTIAL AND NOT TO BE RELEASED WITHOUT AUTHORIZATION [address] [address] Signed had a large amount of stool. There was segmental mural thickening of several loops of ileum within the right lower abdomen. Mildly dilated loops of small-bowel proximally without wall thickening. There was increased mesenteric edema compared to previous CT scan and inflammatory fat surrounding the abnormal small-bowel loops and wall thickening along the right colon and cecum. There is no evidence of aneurysm. There was considered to be increasing mild perihepatic ascites and some bilateral pericolic fluid. There is no evidence of bony lesion. After consultation, I recommended that the patient be immediately anticoagulated with heparin 5000 units IV bolus and to initiate a heparin drip for the mesenteric venous thrombosis findings. The patient herself says she has been having symptoms for the past 4-5 days. She had no nausea or vomiting and no blood per rectum but vague and progressive abdominal pain. SOCIAL HISTORY: She is accompanied by her sister at this time. She tells me that her mother had some sort of bowel resection for ischemic bowel, but with further discussion, likely this was related to adhesions rather than the mesenteric thrombosis phenomenon. The patient was noted to have multiple esophageal and gastric varices and thought this related to longstanding venous thrombosis. The small-bowel was considered to have ischemic ileitis and colitis related to underlying venous thrombosis. REVIEW OF SYSTEMS: She denies any shortness of breath or chest pain. She does have abdominal pain mostly in the right lower abdomen. She is not particularly hungry. She is not nauseated. PHYSICAL EXAMINATION: GENERAL: Pleasant woman, who looks somewhat icteric. NECK: Shows no thyromegaly or cervical adenopathy. Trachea is midline. CHEST: Shows normal respiratory excursion. She is not tachypneic. HEART: Regular without murmur. ABDOMEN: Obese, but soft. There is definitely tenderness in the right lower to mid abdomen. EXTREMITIES: Show no clubbing, cyanosis, or edema. LABORATORY STUDIES: I see no liver enzymes on lab studies today. Admission lab studies showed normal liver enzymes and bilirubin elevated rather at 4.4. Showed a lactic acid yesterday of 1.8 with an ammonia level of 70 (elevated normal up to 32). Chem profile was normal. Creatinine 1.16. Liver enzymes as previously noted. A white count of 12.6 was noted yesterday with hematocrit 44.1, and platelets of . I have reviewed her CT scans in detail and there appears to be segmental thrombotic changes in the portal Electronically Signed By: DUC ROSARIO MD 10/07/21 1890 PATIENT NAME: CARMELO WHIPPLE CONSULTATION DATE OF : 48 REPORT #: [id number] PHYSICIAN: DUC ROSARIO MD PCP: MARIANA OLEA MD REPORT IS CONFIDENTIAL AND NOT TO BE RELEASED WITHOUT AUTHORIZATION [facility] [address], [place] [address] Signed system. There is definite swelling and increased diameter small-bowel loops and possibly portion of the right colon. 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 She does not have signs currently of systemic toxicity and has been initiated on antibiotic therapy already. Her current regimen includes Flagyl intravenously administered. Other medicines include: 1. Protonix. 2. Systemic anticoagulation with heparin intravenously. 3. Morphine. 4. Prednisone 10 mg p.o. daily. 5. Levaquin 750 mg p.o. daily. 6. Enulose (lactulose). 7. Imuran (azathioprine). 8. Arimidex (anastrozole). 9. Insulin as well as Protonix and rifaximin. The thickening and tenderness associated with the bowel loops in the right abdomen are worrisome for ischemic change. She is not known to have had portal venous thrombosis in the past, but note is made that she does have esophageal varices indicative of long-standing portal hypertension. Although, there are controversies regarding anticoagulation in the face of variceal changes, i t is to be remembered that heparin does not induce bleeding, it only facilitates it if it is initiated. I believe the risks of her venous thrombosis of her mesenteric vessels and portal vein warrant the added hazard with underlying portal venous hypertension. A bolus of 5000 units of heparin has been initiated and a drip according to a nomogram to the pharmacy was also initiated. I have additionally asked that a lactic acid level be repeated since the one yesterday was normal and she has ongoing and somewhat unremitting right abdominal pain. Also recommended C-reactive protein be obtained. The question of course remains whether operative intervention would be appropriate. In mesenteric venous thrombosis disease, the primary issue is establishment of anticoagulation, collateralization of the blood vessels, and recanalization of the portal vein and its tributaries as much as possible. Surgical intervention is always a consideration for those, who may have ischemic bowel for which resectional therapy would be indicated. We will assess her lab studies and I have discussed with the patient and her sister the Electronically Signed By: DUC ROSARIO MD 10/07/21 1140 PATIENT NAME: CARMELO WHIPPLE CONSULTATION DATE OF : 48 REPORT #: [id number] PHYSICIAN: DUC ROSARIO MD PCP: MARIANA OLEA MD REPORT IS CONFIDENTIAL AND NOT TO BE RELEASED WITHOUT AUTHORIZATION [facility] [address] [place] [id number] Signed grave nature of her problem. Her multiple underlying problems including autoimmune hepatitis with resultant cirrhosis and portal hypertension and now mesenteric venous thrombosis in the phase of an underlying previous malignancy (breast cancer) portends a generally poor prognosis. On the other hand, I do believe her situation is salvageable with appropriate anticoagulation and if necessary, operative intervention for resectional therapy depending on level of ischemia of the bowel related to the mesenteric venous hypertension. The patient can reliably be noted to need additional fluid resuscitation as bowel wall edema can become considerable. She does have some intra-abdominal ascites already and it appears more today on today's scan than at her admission CT scan. I will discuss all this with Dr. Sampson further. I remain constantly available should operative intervention be required. I will continue to assist in her ongoing management. Duc Rosario MD /MODL /[id number] cc: [facility] Yony Sampson MD Copies: YONY SAMPSON MD ~ Electronically Signed By: DUC ROSARIO MD 10/07/21 1140 PATIENT NAME: CARMELO WHIPPLE CONSULTATION DATE OF : 48 REPORT #: [id number] PHYSICIAN: DUC ROSARIO MD PCP: MARIANA OLEA MD REPORT IS CONFIDENTIAL AND NOT TO BE RELEASED WITHOUT AUTHORIZATION
--- NOTE | 2021-10-07 13:22 | NUR ---
PT IS UP IN CHAIR WATCHING TV. I&O AND VS CHARTED. CALL LIGHT WITHIN REACH. NO FURTHER TASKS AT THIS TIME
--- NOTE | 2021-10-07 13:59 | NUR ---
PT SITTING IN CHAIR-TV ON. PT PLEASANT, NOT HEALING FAST SHE WOULD LIKE BUT GETTING THERE. GAVE BLESSING. WILL FOLLOW
--- NOTE | 2021-10-07 18:09 | NUR ---
PT IS UP IN CHAIR. VS AND I&O CHARTED. CALL LIGHT WITHIN REACH NOFURTHER TASKS AT THIS TIME
--- NOTE | 2021-10-07 18:12 | NUR ---
Pt looked rested today. Spent all day in recliner except for bathroom breaks and PT session. Abx discontinued. Appetite improving. Pt received 2.5mg of Coumadin. pTT was 73.5 this am- no heparin drip rate change. The plan is to tentatively d/c heparin gtt tomorrow providing INR is 2.5. Pt continues to have b/l lower lungs crackles - one dose of 20 mg Lasix given. But overall edema is slowly decreasing. PICC line dressing changed. BM x 1 today.
--- NOTE | 2021-10-07 19:30 | NUR ---
RECEIVED REPORT TEMPERARILY NUTRITION WORKER WHILE PRIMARY RN IS ON HER WAY.
--- NOTE | 2021-10-07 20:30 | NUR ---
IN TO ASSIST PT UP TO THE TOILET.. SBA FWW AND IV POLE
--- NOTE | 2021-10-07 20:45 | NUR ---
PT BACK TO BED, VS TAKEN, ACCU CHECK AT THIS TIME, PILLOWS IN PLACE FOR PT, WARM BLANKET PROVIDED, NO FURTHER NEEDS AT THIS TIME
--- NOTE | 2021-10-07 21:04 | NUR ---
IN TO DO ASSESSMENT AND HS MEDS. PT HAS JUST GOTTEN BACK TO BED FROM BATHROOM WITH ASSIST BY SOUND CONTROLLER. PT DENIES ABDOMINAL PAIN, PT REPORTS "LOTS OF BOWEL MOVEMENTS". HEPARIN GTT INFUSING THROUGH PICC AT 800UNITS/HR. LUNGS HAVE CRACKLES IN BASES AND PT WAS SLIGHTLY SHORT OF BREATH AFTER WALKING BACK FROM BATHROOM BUT RECOVERS QUICKLY. PT IS ALERT AND ORIENTED, HAS CALL LIGHT IN HAND AND STATES SHE WILL CALL WITH NEEDS.
--- NOTE | 2021-10-07 22:15 | NUR ---
PT SLEEPING SOUNDLY. RESPIRATIONS EVEN AND UNLABORED.
--- NOTE | 2021-10-08 02:32 | NUR ---
UP TO THE BR. HAD A BM AND VOIDED. STATES SHE HAS BEEN SLEEPING WELL. ASSESSMENT COMPLETED.
--- NOTE | 2021-10-08 04:50 | NUR ---
APPEARS TO BE SLEEPING. RESPIRATIONS EVEN AND UNLABORED.
--- NOTE | 2021-10-08 06:32 | NUR ---
PT STATES SHE SLEPT WELL THROUGH THE NIGHT. IS CURRENTLY SITTING UP IN CHAIR AND BRUSHING HAIR. UNEVENTFUL NIGHT.
--- NOTE | 2021-10-08 06:33 | NUR ---
HEPARIN REMAINS RUNNING AT 800 U/HR. STILL AWAITING COAG RESULTS.
--- NOTE | 2021-10-08 07:15 | NUR ---
report received from night rn kentrell - pt sitting up in chair, denies needs at this time. call light in reach.
--- NOTE | 2021-10-08 08:45 | NUR ---
LABS RECEIVED FOR COAGULATION. DR ROSARIO UPDATED AND HEPARIN DRIP STOPPED.
--- NOTE | 2021-10-08 08:59 | NUR ---
RN IN ROOM TO ADMINISTER SCHEDULED MEDICATIONS. PT SITTING UP IN CHAIR EATING BREAKFAST UPON ENTRY. PT DENIES PAIN OR COMPLAINTS AT THIS TIME. INSULIN HELD THIS AM FOR CBG WNL. HEPARIN DRIP DC'D INR WAS WITHIN THERAPEUTIC RANGE. BULLET ASSEMBLY PRESS OPERATOR NOTIFIED MD. 0700 DOSE OF PROTONIX FOUND AT COMPUTER IN ROOM FROM NIGHT RN. WAS NOT ADMINISTERED OR SCANED. RETURNED TO [facility]. PICC LINE HEP LOCED WITHOUT DIFFICULTY. PT DENIES FURTHER NEEDS AT THIS TIME. CALL LIGHT IN REACH.
--- NOTE | 2021-10-08 09:45 | NUR ---
PT AMBULATING IN HALLWAY WITH PT - RUEL.
--- NOTE | 2021-10-08 11:00 | NUR ---
no plan for dc today.
--- NOTE | 2021-10-08 11:05 | NUR ---
RN IN ROOM TO ASSESS PT. PT SITTING UP IN CHAIR PERFOMRING ADLS INDEPENDENTLY UPON ENTERING. PT DENIES PAIN AND NAUSEA - STATES SHE ONLY HAS PAIN WITH GAS "SOMETIMES". PT WORKED WITH PT EARLIER THIS AM, STATES SHE HAD SOME SOB. ASSESSMENT OTHERWISE UNCHANGED FROM PREVIOUS SHIFT. CALL LIGHT IN REACH.
--- NOTE | 2021-10-08 13:28 | NUR ---
RN IN ROOM TO ASSIST PT TO BATHROOM. PT STEADY ON FEET STANDBY ASSIST BUT SOB NOTED WITH ACTIVITY. PT BACK TO CHAIR, CALL LIGHT IN REACH. PT DENIES NEEDS AT THIS TIME.
--- NOTE | 2021-10-08 14:13 | NUR ---
PT ASLEEP, DID NOT DISTURB. WILL CHECK BACK
--- NOTE | 2021-10-08 14:16 | NUR ---
RN IN ROOM TO ASSESS PT. PT CONTINUING TO SIT UP IN CHAIR AND LOOK OUT WINDOW. PT DENIES PAIN AND NAUSEA. ASSESSMENT UNCHANGED FROM AM. VS STABLE. PT EXCITED ABOUT POSSIBILITY OF DC TO HOME IN NEAR FUTURE. CALL LIGHT IN REACH.
--- NOTE | 2021-10-08 15:57 | NUR ---
RN IN ROOM TO ADMINISTER SCHEDULED MEDICATIONS. PT BACK TO CHAIR FROM BATHROOM, AMBULATING IN ROOM STANDBY ONLY, STRONG AND STEADY ON FEET - SOME DIZZINESS WITH TOO MUCH AMBULATION. PT DENIES ANY NEEDS AT THIS TIME. CALL LIGHT IN REACH.
--- NOTE | 2021-10-08 17:42 | NUR ---
RN IN ROOM TO ADMINISTER SCHEDULED MEDICATIONS. PT SITTING IN CHAIR EATING DINNER. DENIES FURTHER NEEDS. PARALEGAL SUPERVISOR IN ROOM TO COMPLETE VS.
--- NOTE | 2021-10-08 18:35 | NUR ---
PT RESTING IN CHAIR, EYES CLOSED, RR EVEN AND UNLABORED. PT HAD A UNEVENTFUL DAY, VS STABLE, AMBULATING IN ROOM WELL. INR THERAPEUTIC, HEP DRIP DC'D. VOIDING QS. PLAN TO DC HOME TOMORROW IF INR REMAINS IN RANGE.
--- NOTE | 2021-10-08 18:47 | NUR ---
DID PATIENT'S BLOOD SUGAR CHECK FOR BREAKFAST LUNCH AND DINNER.
--- NOTE | 2021-10-08 21:10 | NUR ---
UP TO BR. STOOD AT SINK AND BRUSHED TEETH. CALL LIGHT WITHIN REACH. DENIES ANY NEEDS.
--- NOTE | 2021-10-08 23:00 | NUR ---
APPEARS ASLEEP. CALL LIGHT WITHIN REACH.
--- NOTE | 2021-10-09 00:10 | NUR ---
CALL LIGHT ON. pt UP SBA FWW TO TOILET. SOME INCONTINENCE, LARGE VOID, CONCENTRATED URINE. BACK TO BED. NO FURTHER REQUESTS AT THIS TIME. CALL LIGHT WITHIN REACH.
--- NOTE | 2021-10-09 01:50 | NUR ---
APPEARS ASLEEP. RESPIRATIONS EVEN AND UNLABORED
--- NOTE | 2021-10-09 02:45 | NUR ---
pt call light on, pt finished in the bathroom, back to bed, no further needs at this time
--- NOTE | 2021-10-09 06:00 | NUR ---
IN TO GET VITALS, I&Os DONE
--- NOTE | 2021-10-09 06:09 | NUR ---
Pt has had an uneventful night. Appears to have slept well. Uses call light appropriately however will call and then start getting up before staff arrives.
--- NOTE | 2021-10-09 07:35 | NUR ---
REPORT RECEIVED FROM NIGHT RN DANDRE- PT RESTING IN BED AWAKE. DENIES NEEDS AT THIS TIME, IS ANXIOUS AT POSSIBILTIY OF DISCHARGE TODAY.
--- NOTE | 2021-10-09 09:19 | NUR ---
RN IN ROOM TO ADMINISTER SCHEDULED MEDICATIONS. PT UP IN CHAIR UPON ENTERY. PT DENIES PAIN. PICC HEP LOCKED - DRESSING CHANGE NOT INDICATED. VS STABLE. PT DENIES FURTHER NEEDS, CALL LIGHT IN REACH.
--- NOTE | 2021-10-09 10:00 | NUR ---
PER AM MEETING PATIENT TO DISCHARGE TO HOME. NO CHANGES IN DISCHARGE PLAN AT THIS TIME.
--- NOTE | 2021-10-09 10:45 | NUR ---
RN IN ROOM TO ASSESS PT. PT SITTING UP IN CHAIR. DENIES PAIN OR ANY CONCERNS AT THIS TIME. ASSESSMENT WNL - UNCHANGED FROM PREVIOUS ASSESSMENT. VS STABLE. CALL LIGHT IN REACH. [facility] NOT ALLOWING ENTRY OF PT ASSESSMENT INTERVENTION TO BE DOCUMENTED, CALLING HELPLINE TO RESOLVE.
--- NOTE | 2021-10-09 11:35 | NUR ---
PT SITTING IN CHAIR, GAZING OUT WINDOW EATING FRUIT AND SEEMS TO BE HAVING AN ENJOYABLE MOMENT. PT HOPES TO DC TODAY, THANKED ME FOR STOPPING IN. GAVE HER A BLESSING. WILL FOLLOW
[2021-10-09] MEDS ORDERED: XIFAXAN550 MG PO (12:18)
[2021-10-09] MEDS ORDERED: PROPRANOLOL HCL10 MG PO (12:19)
[2021-10-09] MEDS ORDERED: TORSEMIDE10 MG PO (12:20)
[2021-10-09] MEDS ORDERED: WARFARIN SODIUM4 MG PO (12:21)
--- NOTE | 2021-10-09 13:52 | NUR ---
RN IN ROOM TO ASSESS PT - PT SITTING IN CHAIR READING INSTRUCTIONS ON WARFARIN MEDICATION CARE PROVIDED BY PHARMACIST. PT DENIES PAIN OR ANY OTHER CONCERNS.
--- NOTE | 2021-10-09 15:40 | NUR ---
RN IN ROOM TO PREPARE PT FOR DC TO HOME. PICC LINE REMOVED WITHOUT COMPLICATIONS. PRESSURE DRESSING APPLIED. PT TOLERATED IT WITHOUT PAIN OR DIFFICULTY. SCHEDULED MEDICATIONS ADMINISTERD. PT WAITING ON DAUGHTER TO ARRIVE.
== END 2021-10-09 17:01 | disposition home or self-care (01) | DRG 393 ==
LOC: ED 15:22 → CCU 22:43 → MS 22:43
PROVIDERS: ADMIT Internal Medicine; ATTEND Internal Medicine
PROC: 02HV33Z Insertion of Infusion Device into Superior Vena Cava, Percutaneous Approach (ICD-10-PCS; principal; 2021-09-23)
DX: K55.019 Acute (reversible) ischemia of small intestine, extent unspecified (principal); I81 Portal vein thrombosis; R65.10 Systemic inflammatory response syndrome (SIRS) of non-infectious origin without acute organ dysfunction; K76.6 Portal hypertension; K56.7 Ileus, unspecified; K55.039 Acute (reversible) ischemia of large intestine, extent unspecified; Z20.822 Contact with and (suspected) exposure to COVID-19; K75.4 Autoimmune hepatitis; K74.60 Unspecified cirrhosis of liver; E11.9 Type 2 diabetes mellitus without complications; F17.200 Nicotine dependence, unspecified, uncomplicated; Z85.3 Personal history of malignant neoplasm of breast; Z90.89 Acquired absence of other organs; Z79.4 Long term (current) use of insulin; Z79.82 Long term (current) use of aspirin; Z79.899 Other long term (current) drug therapy
CPT/HCPCS: 36415; 36569; 71045; 74018; 74175; 74177; 80048; 80053; 80061; 81001; 81241; 82140; 83036; 83605; 83690; 83735; 84100; 84134; 85025; 85303; 85306; 85610; 85730; 86140; 86850; 86900; 86901; 86922; 87040; 93005; 93010; 97110; 97116; 97162; 97165; 97530; 97535; 99285-25; A9270; C1751; C9113; C9803; J0692; J0696; J1170; J1644; J1815; J1940; J1956; J2270; J2405; J3475; J3480; J7030; J7060; J7121; J7500; J7512; P9047; Q9967; U0003

== ENCOUNTER 2021-12-10 12:54 | Emergency (ER) | payer MEDICARE, OTHER ==
[~2021-12-10] VITALS: Ht 157.5 cm; Wt 79.4 kg
[~2021-12-10 12:54] MED LIST changes: +AZATHIOPRINE50 MG PO; +INVOKANA100 MG PO; +KLOR-CON M2020 MEQ PO; +OCEAN104 ML NAS; +PREDNISONE10 MG PO; +PROPRANOLOL HCL10 MG PO; +PROTONIX40 MG PO; +TORSEMIDE10 MG PO; +WARFARIN SODIUM4 MG PO; +XIFAXAN550 MG PO
== END 2021-12-10 18:46 | disposition home or self-care (01) ==
LOC: ED 12:54
DX: S70.11XA Contusion of right thigh, initial encounter (principal); D68.9 Coagulation defect, unspecified; X58.XXXA Exposure to other specified factors, initial encounter; M79.604 Pain in right leg; E11.22 Type 2 diabetes mellitus with diabetic chronic kidney disease; N18.6 End stage renal disease; Z85.3 Personal history of malignant neoplasm of breast; F17.200 Nicotine dependence, unspecified, uncomplicated; Z79.899 Other long term (current) drug therapy; Z79.01 Long term (current) use of anticoagulants; Z79.52 Long term (current) use of systemic steroids
CPT/HCPCS: 36415; 76882; 80053; 85025; 85610; 99284-25

== ENCOUNTER 2021-12-12 06:48 | Emergency (ER) | payer MEDICARE, OTHER ==
[~2021-12-12] VITALS: Ht 157.5 cm; Wt 79.5 kg
--- OUTSIDE RECORDS SUMMARY | 2021-12-12 06:56 | XMS ---
PreManage Notification: CARMELO WHIPPLE Security Sales Representative Graphic Art Events No recent Security Events currently on file CRITERIA MET - [facility] - 2 Visits in 30 Days CARE PROVIDERS There are no care providers on record at this time. Sisi has no Care Guidelines for this patient. Shakir VISIT COUNT (12 MO.) 3 [facility] TOTAL 3 NOTE: Visits indicate total known visits. ED/C VISIT TRACKING (12 MO.) 12/12/2021 06:49 [facility] [place] TYPE: Emergency COMPLAINT: - R HIP PAIN 12/10/2021 12:57 [facility] [place] TYPE: Emergency COMPLAINT: - BRUISED R HIP, PAIN 09/23/2021 15:23 [facility] [place] TYPE: Emergency COMPLAINT: - ABDOMINAL PAIN INPATIENT VISIT TRACKING (12 MO.) 09/23/2021 22:43 [facility] [place] TYPE: Medical Surgical COMPLAINT: - SEPSIS, ENCEPHALOPATHY DIAGNOSES: - Nicotine dependence, unspecified, uncomplicated - Acute (reversible) ischemia of small intestine, extent unspecified - Other snf (current) drug therapy - Unspecified cirrhosis of liver - detention (current) use of insulin - Type 2 diabetes mellitus without complications - Contact with and (suspected) exposure to COVID-19 - Acquired absence of other organs - Ileus, unspecified - Autoimmune hepatitis - computer terminal operator (current) use of insulin - detention (current) use of aspirin - Nicotine dependence, unspecified, uncomplicated - Portal vein thrombosis - Systemic inflammatory response syndrome (SIRS) of non-infectious origin without acute organ dysfunction - Personal history of malignant neoplasm of breast - Unspecified cirrhosis of liver - Other terminal gauger (current) drug therapy - Acute (reversible) ischemia of small intestine, extent unspecified - Acquired absence of other organs - Portal hypertension - Personal history of malignant neoplasm of breast - Portal vein thrombosis - Type 2 diabetes mellitus without complications - detention (current) use of aspirin - Systemic inflammatory response syndrome (SIRS) of non-infectious origin without acute organ dysfunction - Contact with and (suspected) exposure to COVID-19 - Acute (reversible) ischemia of large intestine, extent unspecified - Sepsis, unspecified organism - Acute (reversible) ischemia of large intestine, extent unspecified - Ileus, unspecified - Portal hypertension - Autoimmune hepatitis [email or web address]
[2021-12-12] MEDS ORDERED: JANTOVEN5 MG PO (09:04)
== END 2021-12-12 09:18 | disposition home or self-care (01) ==
LOC: ED 06:48
DX: M79.81 Nontraumatic hematoma of soft tissue (principal); Z79.01 Long term (current) use of anticoagulants; E11.22 Type 2 diabetes mellitus with diabetic chronic kidney disease; N18.6 End stage renal disease; D64.9 Anemia, unspecified; F17.200 Nicotine dependence, unspecified, uncomplicated; Z79.899 Other long term (current) drug therapy
CPT/HCPCS: 36415; 85025; 85060; 85610; 99283

== ENCOUNTER 2021-12-18 14:25 | Emergency (ER) | payer MEDICARE, OTHER ==
[~2021-12-18] VITALS: Ht 157.5 cm; Wt 68.6 kg
[~2021-12-18 14:25] MED LIST changes: +JANTOVEN5 MG PO
--- OUTSIDE RECORDS SUMMARY | 2021-12-18 14:32 | XMS ---
PreManage Notification: CARMELO WHIPPLE Security Rim Roller Operator Events No recent Security Events currently on file CRITERIA MET - [facility] - 2 Visits in 30 Days CARE PROVIDERS There are no care providers on record at this time. Sisi has no Care Guidelines for this patient. Shakir VISIT COUNT (12 MO.) [address] [facility] TOTAL 4 NOTE: Visits indicate total known visits. ED/C VISIT TRACKING (12 MO.) 12/18/2021 14:[address] [facility] [place] TYPE: Emergency COMPLAINT: - ABNORMAL LABS 12/12/2021 06:49 [facility] [place] TYPE: Emergency COMPLAINT: - R HIP PAIN DIAGNOSES: - End stage renal disease - Pain in right hip - detention (current) use of anticoagulants - Other long-term (current) drug therapy - Nontraumatic hematoma of soft tissue - Nicotine dependence, unspecified, uncomplicated - Type 2 diabetes mellitus with diabetic chronic kidney disease - Anemia, unspecified 12/10/2021 12:57 [facility] [place] TYPE: Emergency COMPLAINT: - BRUISED R HIP, PAIN DIAGNOSES: - Contusion of right thigh, initial encounter - bed bug exterminator (current) use of systemic steroids - Coagulation defect, unspecified - Personal history of malignant neoplasm of breast - Type 2 diabetes mellitus with diabetic chronic kidney disease - Nicotine dependence, unspecified, uncomplicated - bed bug exterminator (current) use of anticoagulants - End stage renal disease - Exposure to other specified factors, initial encounter - Other buttermaker helper (current) drug therapy 09/23/2021 15:23 [facility] [place] TYPE: Emergency COMPLAINT: - ABDOMINAL PAIN INPATIENT VISIT TRACKING (12 MO.) 09/23/2021 22:[address] [facility] [facility] [place] TYPE: Medical Surgical COMPLAINT: - SEPSIS, ENCEPHALOPATHY DIAGNOSES: - Nicotine dependence, unspecified, uncomplicated - Acute (reversible) ischemia of small intestine, extent unspecified - Other long-term (current) drug therapy - Unspecified cirrhosis of liver - bed bug exterminator (current) use of insulin - Type 2 diabetes mellitus without complications - Contact with and (suspected) exposure to COVID-19 - Acquired absence of other organs - Ileus, unspecified - Autoimmune hepatitis - bed bug exterminator (current) use of insulin - bed bug exterminator (current) use of aspirin - Nicotine dependence, unspecified, uncomplicated - Portal vein thrombosis - Systemic inflammatory response syndrome (SIRS) of non-infectious origin without acute organ dysfunction - Personal history of malignant neoplasm of breast - Unspecified cirrhosis of liver - Other long-term (current) drug therapy - Acute (reversible) ischemia of small intestine, extent unspecified - Acquired absence of other organs - Portal hypertension - Personal history of malignant neoplasm of breast - Portal vein thrombosis - Type 2 diabetes mellitus without complications - bed bug exterminator (current) use of aspirin - Systemic inflammatory response syndrome (SIRS) of non-infectious origin without acute organ dysfunction - Contact with and (suspected) exposure to COVID-19 - Acute (reversible) ischemia of large intestine, extent unspecified - Sepsis, unspecified organism - Acute (reversible) ischemia of large intestine, extent unspecified - Ileus, unspecified - Portal hypertension - Autoimmune hepatitis [email or web address]
== END 2021-12-18 18:12 | disposition home or self-care (01) ==
LOC: ED 14:25
DX: D68.32 Hemorrhagic disorder due to extrinsic circulating anticoagulants (principal); E11.22 Type 2 diabetes mellitus with diabetic chronic kidney disease; N18.6 End stage renal disease; F17.200 Nicotine dependence, unspecified, uncomplicated; K76.9 Liver disease, unspecified; Z79.899 Other long term (current) drug therapy
CPT/HCPCS: 36415; 74177; 80053; 81001; 83690; 85025; 85060; 85610; 99284-25; J7040; Q9967

== ENCOUNTER 2022-01-15 08:19 | Emergency (ER) | payer MEDICARE, OTHER ==
[~2022-01-15] VITALS: Ht 157.5 cm; Wt 68.5 kg
--- OUTSIDE RECORDS SUMMARY | 2022-01-15 08:24 | XMS ---
PreManage Notification: CARMELO WHIPPLE [employer] Events No recent Security Events currently on file CRITERIA MET - [facility] - 2 Visits in 30 Days CARE PROVIDERS There are no care providers on record at this time. Sisi has no Care Guidelines for this patient. [facility] MO[facility] NOTE: Visits indicate total known visits. ED/C VISIT TRACKING (12 MO.) [facility] COMPLAINT: - LETHARY, WEAKNESS, CONFUSION 12/18/2021 14:25 [facility] TYPE: Emergency COMPLAINT: - ABNORMAL LABS DIAGNOSES: - Other correction (current) drug therapy - Lower abdominal pain, unspecified - Liver disease, unspecified - End stage renal disease - Hemorrhagic disorder due to extrinsic circulating anticoagulants - Nicotine dependence, unspecified, uncomplicated - Type 2 diabetes mellitus with diabetic chronic kidney disease 12/12/2021 06:49 [facility] TYPE: Emergency COMPLAINT: - R HIP PAIN DIAGNOSES: - End stage renal disease - Pain in right hip - predatory animal exterminator (current) use of anticoagulants - Other intermodal customer service (current) drug therapy - Nontraumatic hematoma of soft tissue - Nicotine dependence, unspecified, uncomplicated - Type 2 diabetes mellitus with diabetic chronic kidney disease - Anemia, unspecified 12/10/2021 12:57 [facility] TYPE: Emergency COMPLAINT: - BRUISED R HIP, PAIN DIAGNOSES: - Contusion of right thigh, initial encounter - half-way (current) use of systemic steroids - Coagulation defect, unspecified - Pain in right leg - Personal history of malignant neoplasm of breast - Type 2 diabetes mellitus with diabetic chronic kidney disease - Nicotine dependence, unspecified, uncomplicated - half-way (current) use of anticoagulants - End stage renal disease - Exposure to other specified factors, initial encounter - Other correction (current) drug therapy 09/23/2021 15:23 [facility] TYPE: Emergency COMPLAINT: - ABDOMINAL PAIN INPATIENT VISIT TRACKING (12 MO.) 09/23/2021 22:43 [facility] TYPE: Medical Surgical COMPLAINT: - SEPSIS, ENCEPHALOPATHY DIAGNOSES: - Nicotine dependence, unspecified, uncomplicated - Acute (reversible) ischemia of small intestine, extent unspecified - Other correction (current) drug therapy - Unspecified cirrhosis of liver - predatory animal exterminator (current) use of insulin - Type 2 diabetes mellitus without complications - Contact with and (suspected) exposure to COVID-19 - Acquired absence of other organs - Ileus, unspecified - Autoimmune hepatitis - half-way (current) use of insulin - predatory animal exterminator (current) use of aspirin - Nicotine dependence, unspecified, uncomplicated - Portal vein thrombosis - Systemic inflammatory response syndrome (SIRS) of non-infectious origin without acute organ dysfunction - Personal history of malignant neoplasm of breast - Unspecified cirrhosis of liver - Other correction (current) drug therapy - Acute (reversible) ischemia of small intestine, extent unspecified - Acquired absence of other organs - Portal hypertension - Personal history of malignant neoplasm of breast - Portal vein thrombosis - Type 2 diabetes mellitus without complications - half-way (current) use of aspirin - Systemic inflammatory response syndrome (SIRS) of non-infectious origin without acute organ dysfunction - Contact with and (suspected) exposure to COVID-19 - Acute (reversible) ischemia of large intestine, extent unspecified - Sepsis, unspecified organism - Acute (reversible) ischemia of large intestine, extent unspecified - Ileus, unspecified - Portal hypertension - Autoimmune hepatitis [email or web address]
--- NOTE | 2022-01-17 07:10 | EKG ---
[facility] [address] [facility] [place] [address] Signed Normal sinus rhythm Nonspecific T wave abnormality Prolonged QT Abnormal ECG When compared with ECG of 23-SEP-2021 17:09, Vent. rate has decreased BY [address] no longer depressed in Lateral leads Nonspecific T wave abnormality has replaced inverted T waves in Inferior leads Nonspecific T wave abnormality has replaced inverted T waves in Lateral leads Confirmed by MATHIEU CESAR MD ([id number] on 01/17/2022 7:09:51 AM Electronically Signed By: MATHIEU CESAR MD 01/17/22 0710 PATIENT NAME: CARMELO WHIPPLE Electrocardiogram DATE OF : 48 PHYSICIAN: MATHIEU CESAR MD REPORT #: [id number] REPORT IS CONFIDENTIAL AND NOT TO BE RELEASED WITHOUT AUTHORIZATION
== END 2022-01-15 15:21 | disposition short-term general hospital (02) ==
LOC: ED 08:19
DX: K72.90 Hepatic failure, unspecified without coma (principal); K76.7 Hepatorenal syndrome; E11.22 Type 2 diabetes mellitus with diabetic chronic kidney disease; N18.6 End stage renal disease; F17.200 Nicotine dependence, unspecified, uncomplicated; Z20.822 Contact with and (suspected) exposure to COVID-19; Z79.899 Other long term (current) drug therapy
CPT/HCPCS: 36415; 51702; 71045; 80053; 81001; 82140; 85025; 85060; 85610; 87502; 93005; 93010; 99285-25; C9803; J2405; J7121; U0003